=== PATIENT | female | born 1950 | race African-American/Black ===

== ENCOUNTER 2019-01-14 13:14 | Observation (INO) | payer OTHER ==
[~2019-01-14] VITALS: Ht 165.1 cm; Wt 77.1 kg
--- OUTSIDE RECORDS SUMMARY | 2019-01-14 13:17 | XMS REPORT | CCD ---
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 Role Phone Larry Recinos CP Allergies, Adverse Reactions, Alerts Substance Reaction Status NKDA Active Problem List Condition Effective Dates Status Hypertension Active Medications Medication Instructions Start Date End Date Status Flexeril 10 mg, 1 tab, Route: PO, Drug form: 06/01/2012 06/02/2012 Discontinued TAB, TID, PRN Pain, Priority: STAT, Start date: 06/01/12 15:16:00, Duration: 30 day, Stop date: 07/01/12 15:15:00 aspirin 325 mg, 1 tab, Route: PO, Drug 06/01/2012 06/01/2012 Completed form: TAB, ONCE, Priority: STAT, Start date: 06/01/12 15:24:00, Stop date: 06/01/12 15:24:00 ondansetron 4 mg, 2 mL, Route: IVP, Drug form: 06/01/2012 06/02/2012 Discontinued INJ, Q8H, PRN Nausea & Vomiting, Start date: 06/01/12 17:29:00, Duration: 30 day, Stop date: 07/01/12 17:28:00 carvedilol 3.125 mg, 1 tab, Route: PO, Drug 06/01/2012 06/02/2012 Discontinued form: TAB, Q12H, Start date: 06/01/12 21:00:00, Duration: 30 day, Stop date: 07/01/12 9:00:00 morphine Sulfate 2 mg, 1 mL, Route: IVP, Drug form: 06/01/2012 06/02/2012 Discontinued INJ, Q15Min, PRN Chest Pain, Start date: 06/01/12 17:29:00, Duration: 2 doses or times, Stop date: Limited # of times nitroglycerin SL Tab 0.4 mg, 1 tab, Route: SL, Drug 06/01/2012 06/02/2012 Discontinued form: TAB, Q5Min, PRN Chest Pain, Start date: 06/01/12 17:29:00, Duration: 3 doses or times, Stop date: Limited # of times Saline Flush 0.9% 5 ml, Route: IVP, Drug Form: INJ, 06/01/2012 06/02/2012 Discontinued Q12H, Start date: 06/01/12 21:00:00, Duration: 30 day, Stop date: 07/01/12 9:00:00 Saline Flush 0.9% 5 ml, Route: IVP, Drug Form: INJ, 06/01/2012 06/01/2012 Discontinued PRN, PRN Line Flush, Start date: 06/01/12 17:29:00, Duration: 30 day, Stop date: 07/01/12 17:28:00 Zithromax Z-Jonathan 250 See Instructions, 1 pkg, 06/02/2012 Ordered mg oral tablet Substitution Allowed, PO PO carvedilol 3.125 mg 3.125 mg, 1 tab, PO, Q12H, 60 tab, 06/02/2012 Ordered oral tablet 1, 1, Substitution Allowed, TAB aspirin 81 mg, 1 tab, Route: PO, Drug form: 06/01/2012 06/02/2012 Discontinued ECTAB, Daily, Start date: 06/01/12 22:30:00, Duration: 30 day, Stop date: 07/01/12 9:00:00 Flexeril 10 mg, 1 tab, Route: PO, Drug form: 06/01/2012 06/01/2012 Completed TAB, ONCE, Priority: STAT, Start date: 06/01/12 13:45:00, Stop date: 06/01/12 13:45:00 metoprolol tartrate 50 mg, Route: PO, Drug form: TAB, 06/01/2012 06/01/2012 Completed ONCE, Priority: STAT, Start date: 06/01/12 14:46:00, Stop date: 06/01/12 14:46:00 Calcium, Magnesium 2 tab, PO, TID, 100 tab, 06/01/2012 06/02/2012 Discontinued and Phosphorus oral Substitution Allowed, Soft Stop, tablet TAB morphine Sulfate 4 mg, Route: IVP, ONCE, Start date: 06/01/2012 06/01/2012 Completed 06/01/12 14:46:00, Stop date: 06/01/12 14:46:00 morphine Sulfate 2 mg, 1 mL, Route: IVP, Drug form: 06/01/2012 06/01/2012 Completed INJ, ONCE, Priority: STAT, Start date: 06/01/12 11:14:00, Stop date: 06/01/12 11:14:00 nitroglycerin 0.4 mg, 1 tab, Route: SL, Drug 06/01/2012 06/01/2012 Discontinued form: TAB, Q5Min, PRN Chest Pain, (Hold if SBP <=90 mmHg or if <=100mmHg with symptomatic dizziness), Start date: 06/01/12 11:14:00, Duration: 3 doses or times, Stop date: Limited # of times Saline Flush 0.9% 5 ml, Route: IVP, Drug Form: INJ, 06/01/2012 06/02/2012 Discontinued PRN, PRN Line Flush, Start date: 06/01/12 11:14:00, Duration: 30 day, Stop date: 07/01/12 11:13:00 Tylenol 650 mg, 2 tab, Route: PO, Drug 06/02/2012 06/02/2012 Discontinued form: TAB, Q4H, PRN Pain Score 1-5, Start date: 06/02/12 9:04:00, Duration: 30 day, Stop date: 07/02/12 9:03:00 Centrum Silver PO, Daily, Substitution Allowed, 06/01/2012 Ordered Women's Soft Stop aspirin 81 mg 81 mg, 1 tab, PO, Daily, tab, 06/01/2012 Ordered tablet, chewable Substitution Allowed, CHEWTAB Vital Signs Most recent to oldest [Reference Range]: 1 2 3 Height 167.64 cm (06/01/2012 10:47:00) Temperature Oral [96.4-99.1 DegF] 98.2 DegF (06/02/2012 12:42:00) 97.9 DegF (06/02/2012 08:02:00) 97.9 DegF (06/02/2012 04:00:00) Systolic Blood Pressure [90-140 mmHg] 121 mmHg (06/02/2012 12:42:00) 140 mmHg (06/02/2012 08:02:00) 96 mmHg (06/02/2012 04:00:00) Diastolic Blood Pressure [60-90 mmHg] 69 mmHg (06/02/2012 12:42:00) 87 mmHg (06/02/2012 08:02:00) 57 mmHg *LOW* (06/02/2012 04:00:00) Respiratory Rate [14-20 BRMIN] 20 BRMIN (06/02/2012 12:42:00) 20 BRMIN (06/02/2012 08:02:00) 18 BRMIN (06/02/2012 04:00:00) Peripheral Pulse Rate [60-100 bpm] 85 bpm (06/02/2012 12:42:00) 88 bpm (06/02/2012 08:02:00) 80 bpm (06/02/2012 04:00:00) Weight 100.000 kg (06/01/2012 10:47:00) Results CHEMISTRY Most recent to oldest [Reference Range]: 1 2 3 Sodium Lvl [135-145 mEq/L] 139 mEq/L (06/01/2012:04:00) Potassium Lvl [3.5-5.1 mEq/L] 3.9 mEq/L (06/01/2012 11:04:00) Chloride Lvl [95-109 mEq/L] 104 mEq/L (06/01/2012:04:00) CO2 [24-32 mEq/L] 25 mEq/L (06/01/2012 11:04:00) AGAP [10.0-20.0 mEq/L] 13.9 mEq/L (06/01/2012:04:00) Creatinine Lvl [0.5-1.4 mg/dL] 0.9 mg/dL (06/01/2012:04:00) BUN [7-22 mg/dL] 17 mg/dL (06/01/2012:04:00) B/C Ratio [6-25] 19 (06/01/2012:04:00) Glucose Lvl [70-99 mg/dL] 101 mg/dL 1 *HI* (06/01/2012 11:04:00) Total Protein [6.4-8.4 g/dL] 8.9 g/dL *HI* (06/01/2012 11:04:00) Albumin Lvl [3.5-5.0 g/dL] 3.8 g/dL (06/01/2012:04:00) Globulin [2.0-4.0 g/dL] 5.1 g/dL *HI* (06/01/2012:04:00) A/G Ratio [0.7-1.6] 0.7 (06/01/2012:04:00) Calcium Lvl [8.5-10.5 mg/dL] 9.4 mg/dL (06/01/2012:04:00) ALT [0-65 U/L] 37 U/L (06/01/2012:04:00) AST [0-37 U/L] 21 U/L (06/01/2012:04:00) Alk Phos [39-136 U/L] 90 U/L (06/01/2012:04:00) Bili Total [0.2-1.3 mg/dL] 0.5 mg/dL (06/01/2012:04:00) Total CK [12-191 U/L] 358 U/L *HI* (06/01/2012 20:45:00) 388 U/L *HI* (06/01/2012 15:30:00) 482 U/L *HI* (06/01/2012:04:00) CK MB [0.5-3.6 ng/mL] 2.0 ng/mL (06/01/2012 20:45:00) 2.2 ng/mL (06/01/2012:30:00) 2.9 ng/mL (06/01/2012:04:00) CK MB Index [0.0-2.5] 0.6 (06/01/2012 20:45:00) 0.6 (06/01/2012:30:00) 0.6 (06/01/2012:04:00) Troponin-I [0.00-0.40 ng/mL] 0.03 ng/mL (06/01/2012 20:45:00) 0.03 ng/mL (06/01/2012 15:30:00) 0.03 ng/mL (06/01/2012:04:00) CHD Risk [3.90-5.80] 4.39 (06/01/2012 15:30:00) Chol [120-200 mg/dL] 215 mg/dL *HI* (06/01/2012:30:00) Trig [0-200 mg/dL] 105 mg/dL (06/01/2012:30:00) HDL [>=35 mg/dL] 49 mg/dL (06/01/2012:30:00) LDL [0-129 mg/dL] 145 mg/dL *HI* (06/01/2012:30:00) 1Interpretive Data: Adult reference range values reflect the clinical guidelines of the [place] [employer]. HEMATOLOGY Most recent to oldest [Reference Range]: 1 2 3 WBC [3.7-10.4 K/CMM] 5.8 K/CMM (06/01/2012:04:00) RBC [4.20-5.40 M/CMM] 4.75 M/CMM (06/01/2012:04:00) Hgb [12.0-16.0 g/dL] 13.2 g/dL (06/01/2012:04:00) Hct [36.0-48.0 %] 39.2 % (06/01/2012::00) MCV [81.0-99.0 fL] 82.5 fL (06/01/2012:04:00) MCH [27.0-31.0 pg] 27.9 pg (06/01/2012:04:00) MCHC [32.0-36.0 g/dL] 33.8 g/dL (06/01/2012:04:00) RDW [11.5-14.5 %] 14.3 % (06/01/2012:04:00) Platelet [133-450 K/CMM] 303 K/CMM (06/01/2012:04:00) MPV [7.4-10.4 fL] 7.5 fL (06/01/2012:04:00) Segs [45.0-75.0 %] 64.4 % (06/01/2012:04:00) Lymphocytes [20.0-40.0 %] 29.3 % (06/01/2012 11:04:00) Monocytes [2.0-12.0 %] 4.4 % (06/01/2012:04:00) Eosinophils [0.0-4.0 %] 1.6 % (06/01/2012 11:04:00) Basophils [0.0-1.0 %] 0.3 % (06/01/2012:04:00) Segs-Bands # [1.5-8.1 K/CMM] 3.7 K/CMM (06/01/2012 11:04:00) Lymphocytes # [1.0-5.5 K/CMM] 1.7 K/CMM (06/01/2012:04:00) Monocytes # [0.0-0.8 K/CMM] 0.3 K/CMM (06/01/2012 11:04:00) Eosinophils # [0.0-0.5 K/CMM] 0.1 K/CMM (06/01/2012 11:04:00) Basophils # [0.0-0.2 K/CMM] 0.0 K/CMM (06/01/2012 11:04:00) PT [12.0-14.7 seconds] 12.3 seconds (06/01/2012:04:00) INR [0.85-1.17] 0.89 2 (06/01/2012:04:00) PTT [22.9-35.8 seconds] 27.1 seconds 3 (06/01/2012 11:04:00) 2Interpretive Data: RECOMMENDED RANGES FOR PROTIME INR: 2.0-3.0 for most medical and surgical thromboembolic states. 2.5-3.5 for artificial heart valves and recurrent embolism. INR SHOULD BE USED ONLY FOR PATIENTS ON STABLE ANTICOAGULANT THERAPY. 3Interpretive Data: Heparin Therapeutic Range: 57 - 92 Seconds
--- OUTSIDE RECORDS SUMMARY | 2019-01-14 13:17 | XMS REPORT | CCD ---
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 Role Phone PiloJonathan wilhelm Alycia CP Allergies, Adverse Reactions, Alerts Substance Reaction Status NKDA Active Problem List Condition Effective Dates Status Hypertension Resolved Hypertension Active Medications Medication Instructions Start Date End Date Status Cross 5/325 oral 2 tab, Route: PO, Dosing Weight 10/14/2013 10/14/2013 Completed tablet 100, kg, ONCE, Start date: 10/14/13 23:17:00, Stop date: 10/14/13 23:17:00 ketorolac 30 mg, Route: IVP, Drug form: INJ, 10/14/2013 10/14/2013 Completed ONCE, Dosing Weight 100, kg, Priority: STAT, Start date: 10/14/13 23:17:00, Stop date: 10/14/13 23:17:00 Cross 5/325 oral 1-2 tablets, PO, Q4-6H, as needed 10/14/2013 10/19/2013 Ordered tablet for pain, # 24 tab, 0 Refill(s) Norvasc 5 mg oral 5 mg=1 tab, PO, Daily, # 30 tab, 0 10/14/2013 Ordered tablet Refill(s) Saline Flush 0.9% 5 mL, Route: IVP, Drug Form: INJ, 10/14/2013 10/15/2013 Discontinued Dosing Weight 100, kg, Q8H, PRN Line Flush, Start date: 10/14/13 17:44:00, Duration: 30 day, Stop date: 11/13/13 17:43:00, Administer at least once every 8 hours Administer at least once every 8 hours(Same as: BD Posiflush) morphine Sulfate 4 mg, 1 mL, Route: IVP, Drug form: 10/14/2013 10/14/2013 Completed INJ, ONCE, Dosing Weight 100, kg, Priority: STAT, Start date: 10/14/13 17:44:00, Stop date: 10/14/13 17:44:00(Same as:MORPhine Sulfate) Vital Signs Most recent to oldest [Reference Range]: 1 2 Temperature Oral [96.4-99.1 DegF] 99.3 DegF *HI* (10/14/2013 23:01:00) 99.3 DegF *HI* (10/14/2013 16:36:00) Systolic Blood Pressure [90-140 mmHg] 155 mmHg *HI* (10/14/2013 19:44:00) 201 mmHg *HI* (10/14/2013 16:36:00) Diastolic Blood Pressure [60-90 mmHg] 72 mmHg (10/14/2013 19:44:00) 97 mmHg *HI* (10/14/2013 16:36:00) Respiratory Rate [14-20 BRMIN] 18 BRMIN (10/14/2013 19:44:00) 20 BRMIN (10/14/2013 16:36:00) Peripheral Pulse Rate [60-100 bpm] 90 bpm (10/14/2013 19:44:00) 115 bpm *HI* (10/14/2013 16:36:00) Results CHEMISTRY Most recent to oldest [Reference Range]: 1 Sodium Lvl [135-145 mEq/L] 139 mEq/L (10/14/2013 17:44:00) Potassium Lvl [3.5-5.1 mEq/L] 3.8 mEq/L (10/14/2013 17:44:00) Chloride Lvl [95-109 mEq/L] 106 mEq/L (10/14/2013 17:44:00) CO2 [24-32 mEq/L] 26 mEq/L (10/14/2013 17:44:00) AGAP [10.0-20.0 mEq/L] 10.8 mEq/L (10/14/2013 17:44:00) Creatinine Lvl [0.5-1.4 mg/dL] 0.7 mg/dL (10/14/2013 17:44:00) eGFR 107 mL/min/1.73m2 1 *NA* (10/14/2013 17:44:00) BUN [7-22 mg/dL] 12 mg/dL (10/14/2013 17:44:00) B/C Ratio [6-25] 17 (10/14/2013 17:44:00) Glucose Lvl [70-99 mg/dL] 98 mg/dL 2 (10/14/2013:44:00) Total Protein [6.4-8.4 g/dL] 8.4 g/dL (10/14/2013:44:00) Albumin Lvl [3.5-5.0 g/dL] 3.9 g/dL (10/14/2013:44:00) Globulin [2.0-4.0 g/dL] 4.5 g/dL *HI* (10/14/2013:44:00) A/G Ratio [0.7-1.6] 0.9 (10/14/2013:44:00) Calcium Lvl [8.5-10.5 mg/dL] 9.0 mg/dL (10/14/2013:44:00) ALT [0-65 unit/L] 32 unit/L (10/14/2013:44:00) AST [0-37 unit/L] 21 unit/L (10/14/2013:44:00) Alk Phos [39-136 unit/L] 104 unit/L (10/14/2013:44:00) Bili Total [0.2-1.3 mg/dL] 0.5 mg/dL (10/14/2013:44:00) Total CK [12-191 unit/L] 525 unit/L *HI* (10/14/2013:44:00) CK MB [0.5-3.6 ng/mL] 4.2 ng/mL *HI* (10/14/2013:44:00) CK MB Index [0.0-2.5] 0.8 (10/14/2013:44:00) Troponin-I [0.00-0.40 ng/mL] 0.04 ng/mL (10/14/2013:44:00) 1Result Comment: The eGFR is calculated using the CKD-EPI formula. In most young, healthy individuals the eGFR will be >90 mL/min/1.73m2. The eGFR declines with age. An eGFR of 60-89 may be normal in some populations, particularly the elderly, for whom the CKD-EPI formula has not been extensively validated. Use of the eGFR is not recommended in the following populations: Individuals with unstable creatinine concentrations, including patients and those with serious co-morbid conditions. Patients with extremes in muscle mass or diet. The data above are obtained from the National Kidney Disease Education Program ( NKDEP) which additionally recommends that when the eGFR is used in patients with extremes of body mass index for purposes of drug dosing, the eGFR should be mul tiplied by the estimated BMI. 2Interpretive Data: Adult reference range values reflect the clinical guidelines of the [place] [employer]. HEMATOLOGY Most recent to oldest [Reference Range]: 1 WBC [3.7-10.4 K/CMM] 7.4 K/CMM (10/14/2013:44:) RBC [4.20-5.40 M/CMM] 4.86 M/CMM (10/14/2013:44:00) Hgb [12.0-16.0 g/dL] 13.3 g/dL (10/14/2013:44:00) Hct [36.0-48.0 %] 40.7 % (10/14/2013:44:00) MCV [81.0-99.0 fL] 83.8 fL (10/14/2013:44:) MCH [27.0-31.0 pg] 27.3 pg (10/14/2013:44:00) MCHC [32.0-36.0 g/dL] 32.6 g/dL (10/14/2013:44:) RDW [11.5-14.5 %] 14.2 % (10/14/2013:44:00) Platelet [133-450 K/CMM] 298 K/CMM (10/14/2013:44:00) MPV [7.4-10.4 fL] 7.8 fL (10/14/2013:44:00) Segs [45.0-75.0 %] 69.1 % (10/14/2013:44:00) Lymphocytes [20.0-40.0 %] 23.3 % (10/14/2013:44:) Monocytes [2.0-12.0 %] 6.2 % (10/14/2013 17:44:00) Eosinophils [0.0-4.0 %] 0.9 % (10/14/2013 17:44:00) Basophils [0.0-1.0 %] 0.5 % (10/14/2013 17:44:00) Segs-Bands # [1.5-8.1 K/CMM] 5.1 K/CMM (10/14/2013 17:44:00) Lymphocytes # [1.0-5.5 K/CMM] 1.7 K/CMM (10/14/2013 17:44:00) Monocytes # [0.0-0.8 K/CMM] 0.5 K/CMM (10/14/2013 17:44:00) Eosinophils # [0.0-0.5 K/CMM] 0.1 K/CMM (10/14/2013 17:44:00) Basophils # [0.0-0.2 K/CMM] 0.0 K/CMM (10/14/2013 17:44:00) D-Dimer 0.55 ug/mL FEU 3 *NA* (10/14/2013 17:44:00) 3Interpretive Data: In DIC, quantitative D-Dimer is generally greater than 0.66 ug/mL FEU. Values of quantitative D-Dimer less than 0.40 ug/mL FEU have been reported to be associated with a low probability of deep vein thrombosis/pulmonary embolism. This test alone should not be used to rule out DVT/PE.
--- OUTSIDE RECORDS SUMMARY | 2019-01-14 13:17 | XMS REPORT | Clinical Summary ---
Author Author [facility] Organization [facility] Address Unknown Phone Unavailable Care Team Providers Care Weight Loss Counselor Name Role Phone Alexis Pinon MD PCP Allergies Comments Active Allergy Reactions Severity Noted Date Swelling of the lips Jh Inhibitors Swelling 07/11/2017 Medications End Date Status Medication Sig Dispensed Refills Start Date Active pantoprazole (PROTONIX) Take 40 mg by 0 40 MG EC tablet mouth daily. 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 Active acetaminophen-codeine Take 1 tablet 0 (TYLENOL WITH CODEINE #3) by mouth 300-30 mg per tablet every 4 (four) hours as needed for moderate pain. Active benzonatate (TESSALON) Take 100 mg 0 100 MG capsule by mouth 3 (three) times a day as needed for cough. Active aspirin (ECOTRIN) 81 MG Take 81 mg by 0 enteric coated tablet mouth every other day. 06/18/2018 Discontinued aspirin 81 mg chewable Chew 1 tablet 30 tablet 11 tablet (81 mg total) 7 daily. 02/13/2018 Discontinued ondansetron (ZOFRAN) 4 MG Take 1 tablet 20 tablet 1 tablet (4 mg total) 7 by mouth every 8 (eight) hours as needed for nausea or vomiting. 02/13/2018 Discontinued PROCTOSOL HC 2.5 % rectal USE 0 cream DIRECTED 7 RECTALLY TWICE A DAY FOR 30 DAYS 02/13/2018 Discontinued atorvastatin (LIPITOR) 20 TAKE 1 TABLET 30 tablet 5 MG tablet (20 MG TOTAL) 8 BY MOUTH DAILY FOR 180 DAYS. DEFAULT OP INS 06/15/2018 Discontinued carvedilol (COREG) 25 MG TAKE 1 TABLET 60 tablet 0 tablet BY MOUTH 8 TWICE A DAY FOR 30 DAYS 02/13/2018 Discontinued pantoprazole (PROTONIX) Take 1 tablet 90 tablet 1 40 MG EC tablet (40 mg total) 8 by mouth daily. Take with supper 08/30/2018 Discontinued magnesium oxide (MAG-OX) Take 1 tablet 60 tablet 11 400 mg tablet (400 mg 8 total) by mouth 2 (two) times a day. 02/13/2018 Discontinued atorvastatin (LIPITOR) 20 Take 1 tablet 30 tablet 5 MG tablet (20 mg total) 8 by mouth daily for 180 days. Default OP ins 02/13/2018 Discontinued miscellaneous medical 1 unit 1 each 1 supply (BLOOD PRESSURE marking on 8 CUFF) misc U-100 syringe daily. 05/17/2018 Discontinued atorvastatin (LIPITOR) 20 Take 1 tablet 30 tablet 5 MG tablet (20 mg total) 8 by mouth daily for 180 days. Default OP ins 06/15/2018 Discontinued miscellaneous medical 1 unit 1 each 1 supply (BLOOD PRESSURE marking on 8 CUFF) misc U-100 syringe daily. 03/15/2018 ferrous sulfate 325 (65 Take 1 tablet 30 tablet 2 FE) MG EC tablet (325 mg 8 total) by mouth daily for 30 days. 06/15/2018 Discontinued ferrous sulfate 325 (65 TAKE 1 TABLET 2 FE) MG tablet (325 MG 8 TOTAL) BY MOUTH DAILY FOR 30 DAYS. 08/30/2018 Discontinued atorvastatin (LIPITOR) 20 Take 1 tablet 90 tablet 1 MG tablet (20 mg total) 8 by mouth daily for 180 days. Default OP ins 08/30/2018 Discontinued ferrous sulfate 325 (65 Take 325 mg 0 FE) MG tablet by mouth daily with breakfast. 06/21/2018 Discontinued enoxaparin (LOVENOX) 100 Inject 100 mg 0 mg/mL syringe under the skin every 12 (twelve) hours. 06/21/2018 Discontinued HYDROcodone-acetaminophen Take 1 tablet 0 (NORCO) 10-325 mg per by mouth tablet every 6 (six) hours as needed for moderate pain. 06/27/2018 Discontinued enoxaparin (LOVENOX) 40 Inject 0.4 mL 12 mL 0 mg/0.4 mL syringe (40 mg total) 8 under the skin daily for 30 days. 07/22/2018 psyllium husk (METAMUCIL) Take 1 packet 30 packet 0 6 gram packet by mouth 8 daily for 30 days. 07/27/2018 enoxaparin (LOVENOX) 40 Inject 0.4 mL 12 mL 0 mg/0.4 mL syringe (40 mg total) 8 under the skin daily for 30 days. 08/02/2018 HYDROcodone-acetaminophen Take 1 tablet 100 tablet 0 (NORCO) 10-325 mg per by mouth 8 tablet every 4 (four) hours as needed for moderate pain for up to 100 doses. Max Daily Amount: 6 tablets 08/30/2018 Discontinued acetaminophen-codeine Take 1 tablet 180 tablet 0 (TYLENOL WITH CODEINE #3) by mouth 8 300-30 mg per every 4 tabletIndications: (four) hours Mucinous adenocarcinoma as needed for of appendix (HCC), Cough, moderate pain Metastatic cancer (HCC) for up to 30 days. 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 08/30/2018 Discontinued benzonatate (TESSALON) Take 1 90 capsule 3 100 MG capsule (100 8 capsuleIndications: mg total) by Mucinous adenocarcinoma mouth 3 of appendix (HCC), Cough, (three) times Metastatic cancer (HCC) a day as needed for cough for up to 30 days. 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 Cancer Staging: Pathologic stage from 11/08/2017: Stage SARAH (ypTX, pN0, cM1b, G1) - Signed by Lyndsey Chatterjee MD on 11/28/2017 Protein-calorie malnutrition, moderate 11/09/2017 Colovaginal fistula 11/06/2017 Metastatic cancer 11/03/2017 Omental metastasis 09/11/2017 Cancer Staging: Pathologic stage from 11/08/2017: Stage IVC (ypT4a, pN1c, pM1c) - Signed by Lyndsey Chatterjee MD on 11/20/2017 Obesity 09/11/2017 Hypoalbuminemia 09/11/2017 Carcinomatosis 09/06/2017 Hyperlipidemia 06/12/2017 Chronic deep vein thrombosis (DVT) of lower extremity 06/05/2017 Cough 05/16/2017 Essential hypertension 04/10/2017 Resolved Problems Problem Noted Date Resolved Date Vaginal bleeding 06/15/2018 07/03/2018 Normocytic anemia 02/13/2018 04/06/2018 Colovesical fistula 11/06/2017 02/13/2018 Reactive depression 10/09/2017 02/13/2018 Slow transit constipation 10/09/2017 02/13/2018 Cancer of appendix 09/18/2017 04/06/2018 Hypokalemia 09/11/2017 02/13/2018 Cellulitis 09/03/2017 02/13/2018 Vaginal bleeding 07/21/2017 02/13/2018 Acute cystitis with hematuria 07/21/2017 02/13/2018 Claudication 07/11/2017 02/13/2018 UTI (urinary tract infection) 05/16/2017 02/13/2018 Bartholin cyst 04/28/2017 02/13/2018 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 02/13/2018 Encounters Care Team Description Date Type Specialty Harish Villagomez MD 09/20/2018 Telephone Oncology Enrique Casillas DO Patel, Sachin P., MD Samani, Kaveh, MD Cancer of appendix (HCC) (Primary Dx); Metastatic cancer (HCC) 08/30/2018 Hospital Neurology - Encounter 09/03/2018 Mary Dejessu RN 08/29/2018 Documentation Oncology Abel Hdez LMSW 08/13/2018 Social Work Oncology Harish Villagomez MD 08/10/2018 Telephone Oncology Abel Hdez, [facility] [place] 08/10/2018 Social Work Oncology Abel Hdez, [facility] [place] 08/09/2018 Social Work Oncology Abel Hdez, [facility] [place] 08/06/2018 Social Work Oncology Abel Hdez, [facility] [place] 08/02/2018 Social Work Oncology Harish Villagomez MD 07/31/2018 Telephone Oncology Abel Hdez, [facility] [place] 07/31/2018 Social Work Oncology Harish Villagomez MD Left foot pain 07/30/2018 Hospital Radiology Encounter Harish Villagomez MD Cancer of appendix (HCC) 07/30/2018 Hospital Radiology Encounter Harish Villagomez MD Cancer of appendix (HCC) 07/30/2018 Lab Lab Harish Villagomez MD Chronic deep vein thrombosis (DVT) of left lower extremity, unspecified vein (HCC) (Primary Dx); Colovaginal fistula; Mucinous adenocarcinoma of appendix (HCC); Cough; Arch pain of left foot 07/30/2018 Office Visit Oncology Harish Villagomez MD 07/30/2018 Orders Only Oncology Pola Kelly RN Mucinous adenocarcinoma of appendix (HCC) (Primary Dx); Cough; Metastatic cancer (HCC) 07/30/2018 Orders Only Oncology Ariella Flores MA Cancer of appendix (HCC) (Primary Dx); Left foot pain 07/30/2018 Orders Only Oncology Harish Villagomez MD 07/16/2018 Telephone Oncology Maureen Mcclelland MA 07/05/2018 Telephone Internal Medicine Harish Villagomez MD 07/04/2018 Telephone Oncology Harish Villagomez MD Cancer of appendix; Anemia, unspecified type 07/03/2018 Lab Lab Harish Villagomez MD Chronic deep vein thrombosis (DVT) of left lower extremity, unspecified vein (Primary Dx); Colovaginal fistula; Mucinous adenocarcinoma of appendix; Carcinomatosis; Omental metastasis 07/03/2018 Office Visit Oncology Harish Villagomez MD Cancer of appendix 07/02/2018 Hospital Radiology Encounter Bayron Lay MD 07/02/2018 Hospital Radiation Oncology Encounter Cassie Agosto MA 06/27/2018 Orders Only Internal Medicine Bayron Lay MD 06/18/2018 Hospital Radiation Oncology Encounter Sam Malin MD Boyareddigari, Prasanth R., MD Ahmed, Rezwan, MD Fan, Jinping, MD Vaginal bleeding (Primary Dx); Chronic deep vein thrombosis (DVT) of left lower extremity, unspecified vein; 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 [facility] - [facility] 06/21/2018 Pola Kelly RN 05/30/2018 Telephone Oncology Pola Kelly RN 05/24/2018 Refill Oncology Lucía Hardy MD 05/17/2018 Refill Internal Medicine Darling Savage MD 05/13/2018 Refill Internal Medicine Darling Savage MD Adenocarcinoma carcinomatosis (Primary Dx) 04/13/2018 Orders Only Internal Medicine Harish Villagomez MD Cancer of appendix 04/06/2018 Lab Lab Harish Villagomez MD Cancer of appendix (Primary Dx); Mucinous adenocarcinoma of appendix; Metastatic cancer; Disorder of stoma; Reflux esophagitis; Microcytic anemia 04/06/2018 Office Visit Oncology Ariella Flores MA Cancer of appendix (Primary Dx); Anemia, unspecified type 04/06/2018 Orders Only Oncology Darling Savage MD Disorder of stoma (Primary Dx) 03/15/2018 Orders Only Internal Medicine Darling Savage MD Disorder of stoma (Primary Dx) 03/15/2018 Orders Only Internal Medicine Darling Savage MD Disorder of stoma (Primary Dx); Vertigo 03/13/2018 Office Visit Internal Medicine Harish Villagomez MD Cancer of appendix (Primary Dx); Mucinous adenocarcinoma of appendix; Colovaginal fistula; Carcinomatosis; Omental metastasis 02/27/2018 Office Visit Oncology Ariella Flores MA Cancer of appendix (Primary Dx) 02/27/2018 Orders Only Oncology Ariella Flores MA 02/16/2018 Telephone Oncology Darling Savage MD Hyperlipidemia, unspecified hyperlipidemia type (Primary Dx); Omental metastasis; Mucinous adenocarcinoma of appendix; Carcinomatosis; Metastatic cancer; Normocytic anemia 02/13/2018 Office Visit Internal Medicine Lyndsey Chatterjee MD 02/13/2018 Documentation General Surgery Fran Eid MD Colorectal Tumor Board Review 02/08/2018 Documentation General Surgery Cassie Agosto MA 02/07/2018 Telephone Internal Medicine Lyndsey Chatterjee MD Mucinous adenocarcinoma of appendix (Primary Dx) 02/06/2018 Office Visit General Surgery Lyndsey Chatterjee MD Mucinous adenocarcinoma of appendix 02/02/2018 Lab Lab Lyndsey Chatterjee MD Mucinous adenocarcinoma of appendix 02/02/2018 Hospital Radiology Encounter Darling Savage MD 02/01/2018 Telephone Internal Medicine Ciara Solis RN 01/31/2018 Telephone General Surgery Ciara Solis RN 01/30/2018 Telephone General Surgery Ciara Solis RN 01/29/2018 Telephone General Surgery Ciara Solis RN 01/25/2018 Telephone General Surgery Ciara Solis RN Mucinous adenocarcinoma of appendix (Primary Dx) 01/25/2018 Orders Only General Surgery Ciara Solis RN Mucinous adenocarcinoma of appendix (Primary Dx) 01/25/2018 Orders Only General Surgery after 01/13/2018 Family History Medical History Relation Name Comments Deep vein thrombosis Brother Cervical cancer Daughter Hypertension Father Hypertension Mother Breast cancer Sister Relation Name Status Comments Brother Daughter Father Mother Sister Social History Date Tobacco Use Types Packs/Day Years Used Never Smoker Smokeless Tobacco: Never Used Alcohol Use Drinks/Week oz/Week Comments No Sex Assigned at Date Recorded Not on file Industry Job Start Date Occupation Not on file Not on file Not on file Travel End Travel History Travel Start No recent travel history available. Last Filed Vital Signs Time Taken Vital Sign Reading 09/03/2018 12:37 PM BUSINESS CONTINUITY DIRECTOR Blood Pressure 136/84 09/03/2018 12:37 PM BUSINESS CONTINUITY DIRECTOR Pulse 95 09/03/2018 12:27 PM BUSINESS CONTINUITY DIRECTOR Temperature 36.8 C (98.3 F) 09/03/2018 12:27 PM BUSINESS CONTINUITY DIRECTOR Respiratory Rate 16 09/03/2018 12:27 PM BUSINESS CONTINUITY DIRECTOR Oxygen Saturation 98% - Inhaled Oxygen - Concentration 07/30/2018 1:21 PM CDT Weight 84.4 kg (186 lb 1.6 oz) 08/30/2018 10:00 AM BUSINESS CONTINUITY DIRECTOR Height 165.1 cm (5' 5") 07/30/2018 1:21 PM CDT Body Mass Index 30.97 Plan of Treatment Health Maintenance Due Date Last Done Comments BREAST CANCER SCREENING 2000 COLON CANCER SCREENING 2000 SHINGLES VACCINES (#1) 2000 65+ PNEUMOCOCCAL VACCINE 2015 (1 of 2 - PCV13) PNEUMOCOCCAL 2015 POLYSACCHARIDE VACCINE AGE 65 AND OVER INFLUENZA VACCINE 05/23/2018 Implants Device Identifier Shelf Expiration Date Model / Serial / Lot Implanted Type Area Manufactur er [id number] / / Cook Celect Gulliver Navalign Vascular N/A: N/A itzat Uniset Vena Cava Filter - Filter PERIPHERAL [id number] INTERVENTI Implanted: 06/18/2018 (Quantity not ON on file) Procedures Comments Procedure Name Priority Date/Time Associated Diagnosis ESTIMATED GFR Routine 09/01/2018 5:08 AM BUSINESS CONTINUITY DIRECTOR BASIC METABOLIC PANEL Routine 09/01/2018 5:08 AM BUSINESS CONTINUITY DIRECTOR HC COMPLETE BLD COUNT Routine 09/01/2018 W/AUTO DIFF 5:08 AM BUSINESS CONTINUITY DIRECTOR US ABDOMINAL PARACENTESIS Routine 08/31/2018 IMAGING 2:00 PM BUSINESS CONTINUITY DIRECTOR PROTHROMBIN TIME WITH INR Routine 08/31/2018 4:53 AM BUSINESS CONTINUITY DIRECTOR HC COMPLETE BLD COUNT Routine 08/31/2018 W/AUTO DIFF 4:53 AM BUSINESS CONTINUITY DIRECTOR CARCINOEMBRYONIC ANTIGEN Routine 08/31/2018 (CEA) 4:00 AM BUSINESS CONTINUITY DIRECTOR ESTIMATED GFR Routine 08/31/2018 4:00 AM BUSINESS CONTINUITY DIRECTOR BASIC METABOLIC PANEL Routine 08/31/2018 4:00 AM BUSINESS CONTINUITY DIRECTOR URINALYSIS SCREEN AND Routine 08/30/2018 MICROSCOPY, WITH REFLEX 4:57 PM BUSINESS CONTINUITY DIRECTOR TO CULTURE CT ABDOMEN PELVIS W STAT 08/30/2018 CONTRAST 1:21 PM BUSINESS CONTINUITY DIRECTOR ESTIMATED GFR STAT 08/30/2018 10:50 AM BUSINESS CONTINUITY DIRECTOR URINALYSIS SCREEN AND STAT 08/30/2018 MICROSCOPY, WITH REFLEX 10:50 AM BUSINESS CONTINUITY DIRECTOR TO CULTURE LIPASE LEVEL STAT 08/30/2018 10:50 AM BUSINESS CONTINUITY DIRECTOR COMPREHENSIVE METABOLIC STAT 08/30/2018 PANEL 10:50 AM BUSINESS CONTINUITY DIRECTOR HC COMPLETE BLD COUNT STAT 08/30/2018 W/AUTO DIFF 10:50 AM BUSINESS CONTINUITY DIRECTOR GRAM STAIN STAT 08/30/2018 10:50 AM BUSINESS CONTINUITY DIRECTOR URINE CULTURE STAT 08/30/2018 10:50 AM BUSINESS CONTINUITY DIRECTOR ECG 12-LEAD STAT 08/30/2018 10:13 AM BUSINESS CONTINUITY DIRECTOR XR CHEST 2 VW Routine 07/30/2018 Cancer of appendix (HCC) 4:00 PM CDT XR FOOT 3+ VW LEFT Routine 07/30/2018 Left foot pain 3:59 PM CDT CARCINOEMBRYONIC ANTIGEN Routine 07/30/2018 (CEA) 2:58 PM CDT CBC WITH PLATELET AND Routine 07/30/2018 DIFFERENTIAL 2:58 PM CDT COMPREHENSIVE METABOLIC Routine 07/30/2018 PANEL 2:58 PM CDT ESTIMATED GFR STAT 07/03/2018 2:55 PM CDT MAGNESIUM LEVEL STAT 07/03/2018 Cancer of appendix 2:55 PM CDT FERRITIN LEVEL STAT 07/03/2018 Anemia, unspecified type 2:55 PM CDT CANCER ANTIGEN 19-9 STAT 07/03/2018 Cancer of appendix 2:55 PM CDT COMPREHENSIVE METABOLIC STAT 07/03/2018 Cancer of appendix PANEL 2:55 PM CDT HC COMPLETE BLD COUNT STAT 07/03/2018 Cancer of appendix W/AUTO DIFF 2:[address] ABDOMEN PELVIS W STAT 07/02/2018 Cancer of appendix CONTRAST 12:37 PM CDT ZZESTIMATED GFR Routine 06/21/2018 12:02 AM CDT BASIC METABOLIC PANEL Routine 06/21/2018 12:02 AM CDT HC COMPLETE BLD COUNT Routine 06/21/2018 W/AUTO DIFF 12:02 AM CDT SURGICAL PATHOLOGY Routine 06/20/2018 REQUEST 5:02 PM CDT ECG 12-LEAD STAT 06/20/2018 2:51 PM CDT PREPARE RBC Timed 06/20/2018 11:35 AM CDT TYPE AND SCREEN Timed 06/20/2018 11:35 AM CDT ZZESTIMATED GFR Routine 06/20/2018 4:35 AM CDT BASIC METABOLIC PANEL Routine 06/20/2018 4:35 AM CDT HC COMPLETE BLD COUNT Routine 06/20/2018 W/AUTO DIFF 4:35 AM CDT ZZESTIMATED GFR Routine 06/19/2018 4:45 AM CDT COMPREHENSIVE METABOLIC Routine 06/19/2018 PANEL 4:45 AM CDT HC COMPLETE BLD COUNT Routine 06/19/2018 W/AUTO DIFF 4:45 AM CDT D-DIMER Routine 06/19/2018 4:45 AM CDT CARCINOEMBRYONIC ANTIGEN Routine 06/19/2018 (CEA) 4:45 AM CDT IR IVC FILTER PLACEMENT Routine 06/18/2018 1:57 PM CDT PARTIAL THROMBOPLASTIN Routine 06/18/2018 TIME (PTT) 10:55 AM CDT PROTHROMBIN TIME WITH INR Routine 06/18/2018 10:55 AM CDT HC COMPLETE BLD COUNT Routine 06/18/2018 W/AUTO DIFF 10:55 AM CDT ZZESTIMATED GFR Routine 06/18/2018 12:00 AM CDT BASIC METABOLIC PANEL Routine 06/18/2018 12:00 AM CDT ZZESTIMATED GFR Routine 06/17/2018 4:00 AM CDT PARTIAL THROMBOPLASTIN Routine 06/17/2018 TIME (PTT) 4:00 AM CDT PROTHROMBIN TIME WITH INR Routine 06/17/2018 4:00 AM CDT BASIC METABOLIC PANEL Routine 06/17/2018 4:00 AM CDT HC COMPLETE BLD COUNT Routine 06/17/2018 W/AUTO DIFF 4:[address] ABDOMEN WWO CONTRAST Routine 06/16/2018 PELVIS W CONTRAST 12:35 PM CDT ZZESTIMATED GFR Routine 06/16/2018 3:19 AM CDT HAPTOGLOBIN Routine 06/16/2018 3:19 AM CDT IRON LEVEL Routine 06/16/2018 3:19 AM CDT BASIC METABOLIC PANEL Routine 06/16/2018 3:19 AM CDT PARTIAL THROMBOPLASTIN Routine 06/16/2018 TIME (PTT) 3:19 AM CDT PROTHROMBIN TIME WITH INR Routine 06/16/2018 3:19 AM CDT HC COMPLETE BLD COUNT Routine 06/16/2018 W/AUTO DIFF 3:[address] ANGIOGRAM PE CHEST STAT 06/15/2018 7:50 PM CDT ECG 12-LEAD STAT 06/15/2018 6:46 PM CDT TROPONIN STAT 06/15/2018 6:23 PM CDT HEMOGLOBIN & HEMATOCRIT STAT 06/15/2018 6:20 PM CDT FOLATE LEVEL Routine 06/15/2018 6:20 PM CDT VITAMIN B12 LEVEL Routine 06/15/2018 6:20 PM CDT LDH Routine 06/15/2018 6:20 PM CDT HAPTOGLOBIN Routine 06/15/2018 6:20 PM CDT TOTAL IRON BINDING Routine 06/15/2018 CAPACITY 6:20 PM CDT FERRITIN LEVEL Routine 06/15/2018 6:20 PM CDT IRON LEVEL Routine 06/15/2018 6:20 PM CDT TYPE AND SCREEN Routine 06/15/2018 6:20 PM CDT US DUPLEX VENOUS LOWER STAT 06/15/2018 EXTREMITY BILATERAL 5:58 PM CDT ZZESTIMATED GFR STAT 06/15/2018 12:51 PM CDT PARTIAL THROMBOPLASTIN STAT 06/15/2018 TIME (PTT) 12:51 PM CDT PROTHROMBIN TIME WITH INR STAT 06/15/2018 12:51 PM CDT COMPREHENSIVE METABOLIC STAT 06/15/2018 PANEL 12:51 PM CDT HC COMPLETE BLD COUNT STAT 06/15/2018 W/AUTO DIFF 12:51 PM CDT ZZESTIMATED GFR STAT 04/06/2018 12:10 PM CDT CANCER ANTIGEN 19-9 STAT 04/06/2018 Cancer of appendix 12:10 PM CDT CARCINOEMBRYONIC ANTIGEN STAT 04/06/2018 Cancer of appendix (CEA) 12:10 PM CDT COMPREHENSIVE METABOLIC STAT 04/06/2018 Cancer of appendix PANEL 12:10 PM CDT HC COMPLETE BLD COUNT STAT 04/06/2018 Cancer of appendix W/AUTO DIFF 12:[address] CHEST W CONTRAST Routine 02/02/2018 Mucinous adenocarcinoma ABDOMEN W CONTRAST PELVIS 4:09 PM CDT of appendix W CONTRAST CANCER ANTIGEN 125 Routine 02/02/2018 Mucinous adenocarcinoma 12:00 AM CDT of appendix CARCINOEMBRYONIC ANTIGEN Routine 02/02/2018 Mucinous adenocarcinoma (CEA) 12:00 AM CDT of appendix CANCER ANTIGEN 19-9 Routine 02/02/2018 Mucinous adenocarcinoma 12:00 AM CDT of appendix PROTHROMBIN TIME WITH INR Routine 02/02/2018 Mucinous adenocarcinoma 12:00 AM CDT of appendix PARTIAL THROMBOPLASTIN Routine 02/02/2018 Mucinous adenocarcinoma TIME (PTT) 12:00 AM CDT of appendix COMPREHENSIVE METABOLIC Routine 02/02/2018 Mucinous adenocarcinoma PANEL 12:00 AM CDT of appendix CBC WITH PLATELET AND Routine 02/02/2018 Mucinous adenocarcinoma DIFFERENTIAL 12:00 AM CDT of appendix after 01/13/2018 Results * Estimated GFR (09/01/2018 5:08 AM BUSINESS CONTINUITY DIRECTOR) Only the most recent of 4 results within the time period is included. Estimated GFR >=90 mL/min/1.73 m2 [facility] DEPARTMENT OF Comment: PATHOLOGY AND C[employer]oryUnitsInte GENOMIC MEDICINE rpretation G1 >=90 Normal or high G2 60-89Mildly decreased [id number] Mildly to moderately decreased [id number] Moderately to severely decreased G4 15-29Severely decreased G5 <15Kidney failure The eGFR was calculated using the Chronic Kidney Disease Epidemiology Collaboration (CKD-EPI) equation. Interpretation is based on recommendations of the National Kidney Foundation-Kidney Disease Outcomes Quality Initiative (NKF-KDOQI) published in 2014. Specimen Plasma specimen Performing Organization Address City/State/Zipcode Phone Number [facility] DEPARTMENT OF [address] [place] [address] PATHOLOGY AND GENOMIC MEDICINE * CBC with platelet and differential (09/01/2018 5:08 AM BUSINESS CONTINUITY DIRECTOR) Only the most recent of 14 results within the time period is included. WBC 4.70 4.50 - 11.00 k/uL [facility] DEPARTMENT OF PATHOLOGY AND GENOMIC MEDICINE RBC 3.49 (L) 4.20 - 5.50 m/uL [facility] DEPARTMENT OF PATHOLOGY AND GENOMIC MEDICINE HGB 8.1 (L) 12.0 - 16.0 g/dL [facility] DEPARTMENT OF PATHOLOGY AND GENOMIC MEDICINE HCT 27.0 (L) 37.0 - 47.0 % [facility] DEPARTMENT OF PATHOLOGY AND GENOMIC MEDICINE MCV 77.4 (L) 82.0 - 100.0 fL [facility] DEPARTMENT OF PATHOLOGY AND GENOMIC MEDICINE MCH 23.2 (L) 27.0 - 34.0 pg [facility] DEPARTMENT OF PATHOLOGY AND GENOMIC MEDICINE MCHC 30.0 (L) 31.0 - 37.0 g/dL [facility] DEPARTMENT OF PATHOLOGY AND GENOMIC MEDICINE RDW - SD 47.2 37.0 - 55.0 fL [facility] DEPARTMENT OF PATHOLOGY AND GENOMIC MEDICINE MPV 9.1 8.8 - 13.2 fL [facility] DEPARTMENT OF PATHOLOGY AND GENOMIC MEDICINE Platelet count 401 (H) 150 - 400 k/uL [facility] DEPARTMENT OF PATHOLOGY AND GENOMIC MEDICINE Nucleated RBC 0.00 /100 WBC [facility] DEPARTMENT OF PATHOLOGY AND GENOMIC MEDICINE Neutrophils 58.1 39.0 - 69.0 % [facility] DEPARTMENT OF PATHOLOGY AND GENOMIC MEDICINE Lymphocytes 30.4 25.0 - 45.0 % [facility] DEPARTMENT OF PATHOLOGY AND GENOMIC MEDICINE Monocytes 8.7 0.0 - 10.0 % [facility] DEPARTMENT OF PATHOLOGY AND GENOMIC MEDICINE Eosinophils 1.5 0.0 - 5.0 % [facility] DEPARTMENT OF PATHOLOGY AND GENOMIC MEDICINE Basophils 1.1 (H) 0.0 - 1.0 % [facility] DEPARTMENT OF PATHOLOGY AND GENOMIC MEDICINE Immature granulocytes 0.2Comment: "Immature 0.0 - 1.0 % [facility] DEPARTMENT OF granulocytes" (promyelocytes, PATHOLOGY AND myelocytes, metamyelocytes) [facility] Specimen Blood Performing Organization Address City/State/Zipcode Phone Number [facility] DEPARTMENT OF [address] [place] [address] PATHOLOGY AND GENOMIC MEDICINE * Basic metabolic panel (09/01/2018 5:08 AM BUSINESS CONTINUITY DIRECTOR) Only the most recent of 7 results within the time period is included. Sodium 139 135 - 148 mEq/L [facility] DEPARTMENT OF PATHOLOGY AND GENOMIC MEDICINE Potassium 3.6 3.5 - 5.0 mEq/L [facility] DEPARTMENT OF PATHOLOGY AND GENOMIC MEDICINE Chloride 103 98 - 112 mEq/L [facility] DEPARTMENT OF PATHOLOGY AND GENOMIC MEDICINE CO2 22 (L) 24 - 31 mEq/L [facility] DEPARTMENT OF PATHOLOGY AND GENOMIC MEDICINE Anion gap 14@ANIO 7 - 15 mEq/L [facility] DEPARTMENT OF PATHOLOGY AND GENOMIC MEDICINE BUN 5 (L) 8 - 23 mg/dL [facility] DEPARTMENT OF PATHOLOGY AND GENOMIC MEDICINE Creatinine 0.70 0.50 - 0.90 mg/dL [facility] DEPARTMENT OF PATHOLOGY AND GENOMIC MEDICINE Glucose 94 65 - 99 mg/dL [facility] DEPARTMENT OF PATHOLOGY AND GENOMIC MEDICINE Calcium 9.2 8.8 - 10.2 mg/dL [facility] DEPARTMENT OF PATHOLOGY AND GENOMIC MEDICINE Specimen Plasma specimen Performing Organization Address City/State/Zipcode Phone Number [facility] OF [address] [place] [address] PATHOLOGY AND GENOMIC MEDICINE * US Abdominal Paracentesis Imaging (08/31/2018 2:00 PM BUSINESS CONTINUITY DIRECTOR) Narrative Performed At EXAMINATION:US ABDOMINAL PARACENTESIS IMAGING RADIANT CLINICAL HISTORY: ASCITES, abd pain and swellling COMPARISON: CT abdomen pelvis from August 30, 2018 TECHNIQUE: The procedure's risks, benefits, and alternatives were discussed with the patient and written, informed consent was obtained. Preprocedural ultrasound of the abdomen was performed which demonstrates a complex, echogenic masslike lesion within the left upper quadrant. No simple fluid is present. Using ultrasound guidance, a site for needle entry was selected and the overlying skin was prepped and draped in the usual sterile fashion. 1% buffered lidocaine was used for local anesthesia. An 18-gauge needle was advanced into the complex appearing fluid collection aspiration was performed, however no fluid was obtained. The needle was removed and procedure was terminated. The patient tolerated the procedure without difficulty. 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 [facility]-[id number] Procedure Note Interface, Radiology Results Incoming - 08/31/2018 2:22 PM BUSINESS CONTINUITY DIRECTOR EXAMINATION: US ABDOMINAL PARACENTESIS IMAGING CLINICAL HISTORY: ASCITES, abd pain and swellling COMPARISON: CT abdomen pelvis from August 30, 2018 TECHNIQUE: The procedure's risks, benefits, and alternatives were discussed with the patient and written, informed consent was obtained. Preprocedural ultrasound of the abdomen was performed which demonstrates a complex, echogenic masslike lesion within the left upper quadrant. No simple fluid is present. Using ultrasound guidance, a site for needle entry was selected and the overlying skin was prepped and draped in the usual sterile fashion. 1% buffered lidocaine was used for local anesthesia. An 18-gauge needle was advanced into the complex appearing fluid collection aspiration was performed, however no fluid was obtained. The needle was removed and procedure was terminated. The patient tolerated the procedure without difficulty. 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 [facility]-[id number] Performing Organization Address [facility] [place] [address] * Prothrombin time with INR (08/31/2018 4:53 AM BUSINESS CONTINUITY DIRECTOR) Only the most recent of 6 results within the time period is included. Prothrombin time 14.6 (H) 11.5 - 14.5 sec [facility] DEPARTMENT OF PATHOLOGY AND [facility] MEDICINE INR 1.2 [facility] DEPARTMENT OF Comment: PATHOLOGY AND The International Normalized GENOMIC MEDICINE Ratio (INR) is a therapeutic monitoring tool for patients who are stable on oral anticoagulant therapy. An INR of 2.0-3.0 is suggested for deep vein thrombosis/pulmonary embolism. Specimen Blood Performing Organization Address [facility] [place] [address] PATHOLOGY AND [facility] MEDICINE * Carcinoembryonic antigen (CEA) (08/31/2018 4:00 AM BUSINESS CONTINUITY DIRECTOR) Only the most recent of 5 results within the time period is included. CEA 6,426.0 (H) 0.0 - 3.8 ng/mL [facility] DEPARTMENT OF Comment: PATHOLOGY AND Reference range for heavy [facility] MEDICINE smokers:0.0 - 5.5 ng/mL The NAKIA Doris 8000 CEA immunoassay was used. Results obtained with different assay methods or kits should not be used interchangeably and may be different. Specimen Serum Performing Organization Address [facility] [place] [address] PATHOLOGY AND [facility] MEDICINE * Urinalysis screen and microscopy, with reflex to culture (08/30/2018 4:57 PM BUSINESS CONTINUITY DIRECTOR) Only the most recent of 2 results within the time period is included. Specimen site Clean catch [facility] Specimen Urine Performing Organization Address City/State/Zipcode Phone Number [facility] DEPARTMENT OF [address] [place] [address] PATHOLOGY AND GENOMIC MEDICINE [facility] [address] [place] [address] HOSPITAL * CT Abdomen Pelvis W Contrast (08/30/2018 1:21 PM BUSINESS CONTINUITY DIRECTOR) Only the most recent of 2 results within the time period is included. Narrative Performed At EXAMINATION:CT ABDOMEN PELVIS W CONTRAST [facility] CLINICAL HISTORY:ro new mets or abscess causing distention pain TECHNIQUE: Multiple axial images of the abdomen and pelvis were obtained following intravenous administration of iodinated contrast. CT imaging was performed with iterative reconstruction technique and/or automated exposure control to reduce radiation dose. COMPARISON: 07/02/2018 FINDINGS: LUNG BASES: Coronary calcifications are present. ABDOMEN: Liver: Scalloped hepatic contour, increased compared to the prior examination and compatible with pseudomyxoma peritonei. Gallbladder: The gallbladder is not well assessed. Spleen: The spleen is not enlarged. Pancreas: The pancreas is unremarkable. Adrenal Glands: The adrenal glands are unremarkable. Kidneys: The kidneys are unremarkable. No mass, hydronephrosis or calculi. Vascular: There are scattered vascular calcifications. Previously seen hypoattenuating lesions within the left iliofemoral system no longer well appreciated. IVC filter is in place. Bowel: Difficult to evaluate for bowel wall thickening secondary to the extensive ascites. No evidence of obstruction. There are bilateral lower abdominal enterostomies increased fluid extending through the stoma. Ascites/fluid collections: Increased diffuse ascites resulting in worsening scalloping of the hepatic and splenic contours. PELVIS: Enlarging heterogenous low attenuation nodular focus measuring 35 x 49 mm vaginal cuff (previously 29 x 28 mm). MUSCULOSKELETAL: Dystrophic calcifications are present over the left buttocks. Spondylosis. IMPRESSION: 1.Worsening malignant ascites with increased scalloping of the hepatic contour, compatible with pseudomyxoma peritonei. 2.Enlarging heterogenous low-attenuation focus at the vaginal cuff, which is indeterminate. Unclear whether this represents soft tissue or blood products. Consider direct visualization for further evaluation. [id number] Procedure Note Hm Interface, Radiology Results Incoming - 08/30/2018 1:40 PM BUSINESS CONTINUITY DIRECTOR EXAMINATION: CT ABDOMEN PELVIS W CONTRAST CLINICAL HISTORY: ro new mets or abscess causing distention pain TECHNIQUE: Multiple axial images of the abdomen and pelvis were obtained following intravenous administration of iodinated contrast. CT imaging was performed with iterative reconstruction technique and/or automated exposure control to reduce radiation dose. COMPARISON: 07/02/2018 FINDINGS: LUNG BASES: Coronary calcifications are present. ABDOMEN: Liver: Scalloped hepatic contour, increased compared to the prior examination and compatible with pseudomyxoma peritonei. Gallbladder: The gallbladder is not well assessed. Spleen: The spleen is not enlarged. Pancreas: The pancreas is unremarkable. Adrenal Glands: The adrenal glands are unremarkable. Kidneys: The kidneys are unremarkable. No mass, hydronephrosis or calculi. Vascular: There are scattered vascular calcifications. Previously seen hypoattenuating lesions within the left iliofemoral system no longer well appreciated. IVC filter is in place. Bowel: Difficult to evaluate for bowel wall thickening secondary to the extensive ascites. No evidence of obstruction. There are bilateral lower abdominal enterostomies increased fluid extending through the stoma. Ascites/fluid collections: Increased diffuse ascites resulting in worsening scalloping of the hepatic and splenic contours. PELVIS: Enlarging heterogenous low attenuation nodular focus measuring 35 x 49 mm vaginal cuff (previously 29 x 28 mm). MUSCULOSKELETAL: Dystrophic calcifications are present over the left buttocks. Spondylosis. IMPRESSION: 1. Worsening malignant ascites with increased scalloping of the hepatic contour, compatible with pseudomyxoma peritonei. 2. Enlarging heterogenous low-attenuation focus at the vaginal cuff, which is indeterminate. Unclear whether this represents soft tissue or blood products. Consider direct visualization for further evaluation. [id number] Performing Organization Address City/[facility]/Zipcode Phone Number [facility] [address] [place] [address] * Gram stain (08/30/2018 10:50 AM BUSINESS CONTINUITY DIRECTOR) Gram stain result No WBC's or organisms seen. [facility] DEPARTMENT OF Comment: PATHOLOGY AND Specimen Information GENOMIC MEDICINE Specimen Source: Urine Specimen Site: Clean catch Specimen Urine Performing Organization Address [facility] Centercode Phone Number [address] [address] PATHOLOGY AND GENOMIC MEDICINE * Urine culture (08/30/2018 10:50 AM BUSINESS CONTINUITY DIRECTOR) Urine culture isolate [facility] DEPARTMENT OF ~Mixed PATHOLOGY AND nav <=10-3 GENOMIC MEDICINE col/cc Mixed nav <=10-3 col/cc (A) Comment: Specimen Information Specimen Source: Urine Specimen Site: Clean catch Urine culture isolate Streptococcus group B [facility] DEPARTMENT OF 10-4 cfu/ml PATHOLOGY AND (A) GENOMIC MEDICINE Specimen Urine Performing Organization Address City/[facility] [place] [address] PATHOLOGY AND GENOMIC MEDICINE * Lipase level (08/30/2018 10:50 AM BUSINESS CONTINUITY DIRECTOR) Lipase 25 13 - 60 U/L [facility] DEPARTMENT OF PATHOLOGY AND GENOMIC MEDICINE Specimen Plasma specimen Performing Organization Address [facility] [place] [address] PATHOLOGY AND GENOMIC MEDICINE * Comprehensive metabolic panel (08/30/2018 10:50 AM BUSINESS CONTINUITY DIRECTOR) Only the most recent of 7 results within the time period is included. Sodium 141 135 - 148 mEq/L [facility] DEPARTMENT OF PATHOLOGY AND GENOMIC MEDICINE Potassium 3.9 3.5 - 5.0 mEq/L [facility] DEPARTMENT OF PATHOLOGY AND GENOMIC MEDICINE Chloride 101 98 - 112 mEq/L [facility] DEPARTMENT OF PATHOLOGY AND GENOMIC MEDICINE CO2 26 24 - 31 mEq/L [facility] DEPARTMENT OF PATHOLOGY AND GENOMIC MEDICINE Anion gap 14@ANIO 7 - 15 mEq/L [facility] DEPARTMENT OF PATHOLOGY AND GENOMIC MEDICINE BUN 10 8 - 23 mg/dL [facility] DEPARTMENT OF PATHOLOGY AND GENOMIC MEDICINE Creatinine 0.81 0.50 - 0.90 mg/dL [facility] DEPARTMENT OF PATHOLOGY AND GENOMIC MEDICINE Glucose 94 65 - 99 mg/dL [facility] DEPARTMENT OF PATHOLOGY AND GENOMIC MEDICINE Calcium 9.8 8.8 - 10.2 mg/dL [facility] DEPARTMENT OF PATHOLOGY AND GENOMIC MEDICINE Protein 8.6 (H) 6.3 - 8.3 g/dL [facility] DEPARTMENT OF Comment: PATHOLOGY AND [place] GENOMIC MEDICINE 4.6-7.0 g/dL 1 week 4.4-7.6 g/dL 7 months-1year 5.1-7.3 g/dL 1-2 years5.6-7 .5 g/dL >3 years6.0-8 .0 g/dL 18-150 6.3-8.3 g/dL Albumin 2.8 (L) 3.5 - 5.0 g/dL [facility] DEPARTMENT OF PATHOLOGY AND GENOMIC MEDICINE A/G ratio 0.5 (L) 0.7 - 3.8 [facility] DEPARTMENT OF PATHOLOGY AND GENOMIC MEDICINE Alkaline phosphatase 158 (H) 35 - 104 U/L [facility] DEPARTMENT OF PATHOLOGY AND GENOMIC MEDICINE AST 25 10 - 35 U/L [facility] DEPARTMENT OF PATHOLOGY AND GENOMIC MEDICINE ALT 25 5 - 50 U/L [facility] DEPARTMENT OF PATHOLOGY AND GENOMIC MEDICINE Total bilirubin 0.6 0.0 - 1.2 mg/dL [facility] DEPARTMENT OF PATHOLOGY AND GENOMIC MEDICINE Specimen Plasma specimen Performing Organization Address [facility] Phone Number [facility] DEPARTMENT OF [address] [place] [address] PATHOLOGY AND GENOMIC MEDICINE * ECG 12 lead (08/30/2018 10:13 AM BUSINESS CONTINUITY DIRECTOR) Only the most recent of 3 results within the time period is included. Ventricular rate 104 [facility] MUSE Atrial rate 104 [facility] MUSE TN interval 150 [facility] MUSE QRSD interval 100 [facility] MUSE QT interval 344 [facility] M[facility] QTC interval 452 [facility] MUSE P axis 1 44 [facility] MUSE QRS axis 1 -36 [facility] MUSE T wave axis 48 [facility] MUSE EKG impression Sinus tachycardia-Left axis [facility] MUSE deviation-Minimal voltage criteria for LVH, may be normal variant-Abnormal ECG-In automated comparison with ECG of 20-JUN-2018 14:51,-premature ventricular complexes are no longer present- Performing Organization Address 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 The pulmonary vasculature is normal. There are no acute infiltrates or effusions. Mild interstitial scarring is noted. Degenerative changes of the osseous structures. 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 The pulmonary vasculature is normal. There are no acute infiltrates or effusions. Mild interstitial scarring is noted. Degenerative changes of the osseous structures. [id number] Performing Organization Address [facility]/Zipcode Phone Number [facility] [address] [place] [address] * XR Foot 3+ Vw Left (07/30/2018 3:59 PM CDT) Narrative Performed At EXAMINATION:XR FOOT 3VW LEFT [facility] CLINICAL HISTORY:M79.672 Pain in left foot, foot pain COMPARISON:None. IMPRESSION: There is no evidence of acute left foot fracture or dislocation. Joint spaces are preserved. Bone mineralization is normal. There is calcaneal enthesophyte at the insertion of the Achilles tendon. No radiopaque foreign body noted. [facility]-[id number] Procedure Note Hm Interface, Radiology Results Incoming - 07/30/2018 4:39 PM CDT EXAMINATION: XR FOOT 3 VW LEFT CLINICAL HISTORY: M79.672 Pain in left foot, foot pain COMPARISON: None. IMPRESSION: There is no evidence of acute left foot fracture or dislocation. Joint spaces are preserved. Bone mineralization is normal. There is calcaneal enthesophyte at the insertion of the Achilles tendon. No radiopaque foreign body noted. [facility]-[id number] Performing Organization Address [facility] Phone Number [facility] [address] [place] [address] * Cancer antigen 19-9 (07/03/2018 2:55 PM CDT) Only the most recent of 3 results within the time period is included. CA 19-9 <1 0 - 35 U/mL [facility] DEPARTMENT OF Comment: PATHOLOGY AND The Nakia Doris 8000 CA19-9 GENOMIC MEDICINE immunoassay was used. Results obtained with different assay methods or kits should not be used interchangeably and may be different. Specimen Plasma specimen Performing Organization Address City/[facility]/Zipcode Phone Number [facility] DEPARTMENT OF [address] [place] [address] PATHOLOGY AND GENOMIC MEDICINE * Magnesium level (07/03/2018 2:55 PM CDT) Magnesium 2.0 1.6 - 2.4 mg/dL [facility] DEPARTMENT OF PATHOLOGY AND GENOMIC MEDICINE Specimen Plasma specimen Performing Organization Address City/[facility] [place] [address] PATHOLOGY AND GENOMIC MEDICINE * Ferritin level (07/03/2018 2:55 PM CDT) Only the most recent of 2 results within the time period is included. Ferritin level 445 (H) 13 - 150 ng/mL [facility] DEPARTMENT OF PATHOLOGY AND GENOMIC MEDICINE Specimen Plasma specimen Performing Organization Address City/[facility] [place] [address] PATHOLOGY AND GENOMIC MEDICINE * Estimated GFR (06/21/2018 12:02 AM CDT) Only the most recent of 8 results within the time period is included. GFR Non Af Amer 83 mL/min/1.73 m2 [facility] DEPARTMENT OF PATHOLOGY AND GENOMIC MEDICINE GFR Af Amer >90 mL/min/1.73 m2 [facility] DEPARTMENT OF Comment: PATHOLOGY AND Chronic kidney disease: <60 GENOMIC MEDICINE mL/min/1.73m2 Kidney failure: <15 mL/min/1.73m2 The estimated GFR is calculated from the IDMS-traceable Modification of Diet in Renal Disease Equation. The accuracy of the calculation is poor when the creatinine is normal. Calculated values >90 mL/min/1.73m2 are not reported. This equation has not been validated in children (<18 years), women, the elderly (>70 years), or ethnic groups other than Caucasians and Americans. Specimen Plasma specimen Performing Organization Address [facility] [place] [address] PATHOLOGY AND GENOMIC MEDICINE * Transfuse RBC (06/20/2018 6:45 PM CDT) * Surgical pathology request (06/20/2018 5:02 PM CDT) [facility] DEPARTMENT OF PATHOLOGY AND GENOMIC MEDICINE Surgical pathology report See link below for PDF Lab [facility] DEPARTMENT OF Report PATHOLOGY AND GENOMIC MEDICINE Result status This is Final Report for [facility] DEPARTMENT OF [id number] PATHOLOGY AND GENOMIC MEDICINE Performing Organization Address City/[facility] [place] [address] PATHOLOGY AND GENOMIC MEDICINE * Prepare RBC, 1 Units (06/20/2018 11:35 AM CDT) Product name Red Blood Cells -1, Leukored [facility] DEPARTMENT OF PATHOLOGY AND GENOMIC MEDICINE Unit number [id number] [facility] DEPARTMENT OF PATHOLOGY AND GENOMIC MEDICINE Product code [id number] [facility] DEPARTMENT OF PATHOLOGY AND GENOMIC MEDICINE Dispense status Transfused [facility] DEPARTMENT OF PATHOLOGY AND GENOMIC MEDICINE Blood expiration date [id number] [facility] DEPARTMENT OF PATHOLOGY AND GENOMIC MEDICINE Blood type code 8400 [facility] DEPARTMENT OF PATHOLOGY AND GENOMIC MEDICINE Blood type AB POSITIVE [facility] DEPARTMENT OF PATHOLOGY AND GENOMIC MEDICINE Performing Organization Address [facility] [address] PATHOLOGY AND GENOMIC MEDICINE * Type and screen (06/20/2018 11:35 AM CDT) Only the most recent of 2 results within the time period is included. ABO grouping AB [facility] DEPARTMENT OF PATHOLOGY AND GENOMIC MEDICINE Rh type POS [facility] DEPARTMENT OF PATHOLOGY AND GENOMIC MEDICINE Antibody screen (gel) NEG [facility] DEPARTMENT OF PATHOLOGY AND GENOMIC MEDICINE Specimen Blood Performing Organization Address [facility] Phone Number [facility] [place] [address] PATHOLOGY AND [facility] MEDICINE * D-dimer (06/19/2018 4:45 AM CDT) D-dimer 11.78 (H) 0.00 - 0.40 ug/mL FEU [facility] DEPARTMENT OF Comment: PATHOLOGY AND Units are ug/ml Fibrinogen GENOMIC MEDICINE Equivalent Unit. When combined with low clinical probability, D-dimer results of less than 0.5 ug/ml FEU have a good negativepredictive value in excluding PE or DVT. For D-dimer results greater than 0.5ug/ml FEU further testing is indicated if PE or DVT is suspectedclinically. Elevated D-dimer results have been reported in DVT, PE, and DIC cases and may indicate the presence of a clot. D-dimer results may be elevated due to old age, , inflammatory diseases, trauma, post-operative states, sepsis, and malignancies. Specimen Blood Performing Organization Address City/[facility] [place] [address] PATHOLOGY AND [facility] MEDICINE * IR IVC Filter Placement (06/18/2018 1:57 PM CDT) Narrative Performed At Performing Radiologist PARISA Seals MD Assistants None Anesthesia Type Lidocaine 1% was used for local anesthetic. Moderate sedation was administered by the procedure nurse and monitored by the procedure physician for total bpqb-dv-kocf sedation time of 34 minutes. Pre Procedure Diagnosis 68-year-old woman with deep venous thrombus. Post Procedure Diagnosis Status post inferior vena cava filter placement. Procedure 1. Inferior vena cavogram 2. Placement of a retrievable inferior vena cava filter Technique Written informed consent was obtained prior to the procedure. All elements of maximal sterile barrier technique were followed. The patient's right groin was sterilely prepared and draped in the routine manner. Lidocaine 1% was used for local anesthetic. Using real-time ultrasound guidance, a 21-gauge micropuncture needle was used to access the right common femoral vein. A 0.018 inch guidewire was advanced centrally under fluoroscopy. The needle was removed, and a micropuncture sheath system was then placed over the guidewire. Under ultrasound guidance, documentation of vessel patency, needle access with permanent recording, and reporting are performed followed by placement of a sheath in the right common femoral vein. The inner dilator and guidewire were then removed, and a 0.035 inch J-wire was advanced through the micropuncture sheath and into the inferior vena cava under fluoroscopy. The micropuncture sheath was removed and a 5-Divehi pigtail catheter was then placed over the guidewire and advanced into the low inferior vena cava. An inferior vena cavagram was then performed with injection of contrast. Exchange was then made for the delivery system for Celect retrievable inferior vena cava filter. Using the filter deployment device, the Celect filter was advanced, positioned, and deployed within the infrarenal inferior vena cava. A completion inferior cavagram was then performed through the delivery sheath of the Celect filter. The delivery sheath was removed and hemostasis was achieved with manual compression. The patient tolerated the procedure well. Radiation Dose Ka,r=368 mGy Complications None Specimens Removed None Estimated Blood Loss Less than 1 mL Blood/Blood Products Administered None Grafts/Implants As described in the above repor Impression: 1. An initial inferior vena cavogram demonstrates a normal caliber inferior vena cava. There is no caval thrombus. Inflow from the left common iliac vein and left and right renal veins is noted. 2. Successful placement of a Celect retrievable inferior vena cava filter within the infrarenal inferior vena cava. A completion inferior vena cavogram demonstrates all legs of the filter to be completely deployed with no complications. [facility]-[id number] Procedure Note [facility], Radiology Results Incoming - 06/18/2018 4:33 PM CDT Performing Radiologist Shmuel Seals MD Assistants None Anesthesia Type Lidocaine 1% was used for local anesthetic. Moderate sedation was administered by the procedure nurse and monitored by the procedure physician for total iacp-vc-dmne sedation time of 34 minutes. Pre Procedure Diagnosis 68-year-old woman with deep venous thrombus. Post Procedure Diagnosis Status post inferior vena cava filter placement. Procedure 1. Inferior vena cavogram 2. Placement of a retrievable inferior vena cava filter Technique Written informed consent was obtained prior to the procedure. All elements of maximal sterile barrier technique were followed. The patient's right groin was sterilely prepared and draped in the routine manner. Lidocaine 1% was used for local anesthetic. Using real-time ultrasound guidance, a 21-gauge micropuncture needle was used to access the right common femoral vein. A 0.018 inch guidewire was advanced centrally under fluoroscopy. The needle was removed, and a micropuncture sheath system was then placed over the guidewire. Under ultrasound guidance, documentation of vessel patency, needle access with permanent recording, and reporting are performed followed by placement of a sheath in the right common femoral vein. The inner dilator and guidewire were then removed, and a 0.035 inch J-wire was advanced through the micropuncture sheath and into the inferior vena cava under fluoroscopy. The micropuncture sheath was removed and a 5-Divehi pigtail catheter was then placed over the guidewire and advanced into the low inferior vena cava. An inferior vena cavagram was then performed with injection of contrast. Exchange was then made for the delivery system for Celect retrievable inferior vena cava filter. Using the filter deployment device, the Celect filter was advanced, positioned, and deployed within the infrarenal inferior vena cava. A completion inferior cavagram was then performed through the delivery sheath of the Celect filter. The delivery sheath was removed and hemostasis was achieved with manual compression. The patient tolerated the procedure well. Radiation Dose Ka,r=368 mGy Complications None Specimens Removed None Estimated Blood Loss Less than 1 mL Blood/Blood Products Administered None Grafts/Implants As described in the above repor Impression: 1. An initial inferior vena cavogram demonstrates a normal caliber inferior vena cava. There is no caval thrombus. Inflow from the left common iliac vein and left and right renal veins is noted. 2. Successful placement of a Celect retrievable inferior vena cava filter within the infrarenal inferior vena cava. A completion inferior vena cavogram demonstrates all legs of the filter to be completely deployed with no complications. [facility]-[id number] Performing Organization Address City/State/Zipcode Phone Number [facility] [address] [place] [address] * Partial thromboplastin time, activated (06/18/2018 10:55 AM CDT) Only the most recent of 5 results within the time period is included. PTT 25.2 23.0 - 36.0 sec [facility] DEPARTMENT OF Comment: PATHOLOGY AND PTT therapeutic range for [facility] unfractionated heparin is 61.0-112.0 seconds which corresponds to Anti-Xa 0.3-0.7 U/ml. Specimen Blood Performing Organization Address [facility] Phone Number [facility] [address] [place] [address] PATHOLOGY AND GENOMIC MEDICINE * CT Abdomen WWO Contrast, Pelvis W Contrast (06/16/2018 12:35 PM CDT) Narrative Performed At EXAMINATION:CT ABDOMEN WWO CONTRAST PELVIS W CONTRAST [facility] CLINICAL HISTORY:re-evaluate appendicial cancer TECHNIQUE: Noncontrast images of the abdomen were obtained. Subsequently, axial images of the abdomen and pelvis were obtained following intravenous administration of iodinated contrast. Sagittal and coronal computerized reformatted images were also obtained.. All CT images were acquired using low-dose technique with automated exposure control. COMPARISON: February 02, 2018 FINDINGS: Abdomen: 1.Interval increase in peritoneal carcinomatosis and ascites. There is scalloping along the liver as well as the spleen and portal vein. Interval development of mild scalloping along the anterior pancreatic body. 2.Small hiatal hernia. 3.14 mm enhancing nodule in the right hepatic lobe unchanged relative to prior. 4.The portal vein, SMV, and splenic vein are patent. There are atherosclerotic changes involving the abdominal aorta. No retroperitoneal lymphadenopathy. 5.The gallbladder is relatively decompressed. There is no intrahepatic biliary distention. 6.Soft tissue infiltration at the level of the left ostomy is concerning for tumor in the subcutaneous tissues. There is a right abdominal wall ostomy that is patent. 7.Large and small bowel loops are of normal caliber without evidence for obstruction. 8.The adrenal glands, and kidneys appear normal. Simplified Preoperative Assessment for Appendix Tumor (SPAAT) Presence of liver, spleen, pancreas, or portal vein scalloping: Liver: Yes, 1. Spleen: Yes, 1. Pancreas: Yes, 1. Portal vein: Yes, 1. Mesenteric foreshortening: No, 0 points Total points: 4 Reference: Annals of Surgical Oncology July 2015, Volume 22, Issue 11, pages 0281-7243. Pelvis: 1.There is low attenuation material in addition to air within the vagina measuring 3.0 x 3.2 x 3.1 cm and may relate to sequela of bleeding/clot. The possibility of infection particularly given the presence of air cannot be excluded. 2.Osseous structures are intact. 3.The uterus is surgically absent. IMPRESSION: 1.Postsurgical changes relating to right hemicolectomy. There is a right abdominal ileostomy. A left abdominal colostomy is patent however there is interval development of soft tissue infiltration in the subcutaneous tissues at the ostomy site concerning for tumor/progression of metastatic disease. 2.Interval increase in peritoneal carcinomatosis and ascites. 3.Low-attenuation material within the vaginal vault with a small focus of air may relate to sequela of bleeding and clot. The possibility of infection cannot be excluded. 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 Subsequently, axial images of the abdomen and pelvis were obtained following intravenous administration of iodinated contrast. Sagittal and coronal computerized reformatted images were also obtained.. All CT images were acquired using low-dose technique with automated exposure control. COMPARISON: February 02, 2018 FINDINGS: Abdomen: 1. Interval increase in peritoneal carcinomatosis and ascites. There is scalloping along the liver as well as the spleen and portal vein. Interval development of mild scalloping along the anterior pancreatic body. 2. Small hiatal hernia. 3. 14 mm enhancing nodule in the right hepatic lobe unchanged relative to prior. 4. The portal vein, SMV, and splenic vein are patent. There are atherosclerotic changes involving the abdominal aorta. No retroperitoneal lymphadenopathy. 5. The gallbladder is relatively decompressed. There is no intrahepatic biliary distention. 6. Soft tissue infiltration at the level of the left ostomy is concerning for tumor in the subcutaneous tissues. There is a right abdominal wall ostomy that is patent. 7. Large and small bowel loops are of normal caliber without evidence for obstruction. 8. The adrenal glands, and kidneys appear normal. Simplified Preoperative Assessment for Appendix Tumor (SPAAT) Presence of liver, spleen, pancreas, or portal vein scalloping: Liver: Yes, 1. Spleen: Yes, 1. Pancreas: Yes, 1. Portal vein: Yes, 1. Mesenteric foreshortening: No, 0 points Total points: 4 Reference: Annals of Surgical Oncology July 2015, Volume 22, Issue 11, pages 2143-4119. Pelvis: 1. There is low attenuation material in addition to air within the vagina measuring 3.0 x 3.2 x 3.1 cm and may relate to sequela of bleeding/clot. The possibility of infection particularly given the presence of air cannot be excluded. 2. Osseous structures are intact. 3. The uterus is surgically absent. IMPRESSION: 1. Postsurgical changes relating to right hemicolectomy. There is a right abdominal ileostomy. A left abdominal colostomy is patent however there is interval development of soft tissue infiltration in the subcutaneous tissues at the ostomy site concerning for tumor/progression of metastatic disease. 2. Interval increase in peritoneal carcinomatosis and ascites. 3. Low-attenuation material within the vaginal vault with a small focus of air may relate to sequela of bleeding and clot. The possibility of infection cannot be excluded. [facility]-[id number] Performing Organization Address [facility] Centercode Phone Number [facility] [address] [place] [address] * Iron level (06/16/2018 3:19 AM CDT) Only the most recent of 2 results within the time period is included. Iron level 46 37 - 145 ug/dL [facility] DEPARTMENT OF PATHOLOGY AND GENOMIC MEDICINE Specimen Plasma specimen Performing Organization Address [facility] Centercode Phone Number [address] [address] PATHOLOGY AND GENOMIC MEDICINE * Haptoglobin (06/16/2018 3:19 AM CDT) Only the most recent of 2 results within the time period is included. Haptoglobin 282 (H) 30 - 200 mg/dL [facility] DEPARTMENT OF PATHOLOGY AND GENOMIC MEDICINE Specimen Plasma specimen Performing Organization Address [facility]/Zipcode Phone Number [facility] DEPARTMENT OF [address] [place] [address] PATHOLOGY AND GENOMIC MEDICINE * CT Angiogram Pe Chest (06/15/2018 7:50 PM CDT) Narrative Performed At CT ANGIOGRAM PE CHEST [facility] CLINICAL INDICATION: PE suspectedhigh pretest prob COMPARISON:CT 02/02/2018. TECHNIQUE:CT angiographic images of the chest were obtained during intravenous administration of iodinated contrast.Computerized, reformatted images and 3-D MIP images were obtained and archived (per CT pulmonary embolism protocol). CT scans are performed using radiation dose reduction techniques (iterative reconstruction and/or automated exposure control). Technical factors are evaluated and adjusted to ensure appropriate moderation of exposure. Automated dose management technology is applied to adjust radiation exposure while achieving a diagnostic quality image. FINDINGS: Pulmonary arteries: Diagnostic quality of study is adequate for the evaluation of pulmonary embolism. There is no evidence of acute or chronic pulmonary embolism.No evidence of right heart strain. The main pulmonary artery measures 27 mm in luminal diameter. Aorta:No aneurysm or dissection. Mild calcific atherosclerosis. Lungs and large airways:Mild basilar subsegmental atelectasis/scarring. No focal or confluent airspace consolidation. Pleura:No pleural effusion, pleural thickening, or pneumothorax. Heart and pericardium:Heart size is normal. No pericardial effusion. Mediastinum and denia:No mass or hematoma. Lymph nodes:No pathological adenopathy in the denia, axilla or mediastinum. Chest wall:Unremarkable. Bones:Moderate-severe degenerative changes of the thoracic spine. Upper abdomen: Scalloping of liver contour as before. Ascites. IMPRESSION: 1. Negative CTA examination for pulmonary embolism. 2. Lungs without focal or confluent airspace consolidation. 3. In the visualized upper abdomen, scalloping of liver contour and ascites. [facility]-[id number] Procedure Note Interface, Radiology Results Incoming - 06/15/2018 8:[address] ANGIOGRAM PE CHEST CLINICAL INDICATION: PE suspected high pretest prob COMPARISON: CT 02/02/2018. TECHNIQUE: CT angiographic images of the chest were obtained during intravenous administration of iodinated contrast. Computerized, reformatted images and 3-D MIP images were obtained and archived (per CT pulmonary embolism protocol). CT scans are performed using radiation dose reduction techniques (iterative reconstruction and/or automated exposure control). Technical factors are evaluated and adjusted to ensure appropriate moderation of exposure. Automated dose management technology is applied to adjust radiation exposure while achieving a diagnostic quality image. FINDINGS: Pulmonary arteries: Diagnostic quality of study is adequate for the evaluation of pulmonary embolism. There is no evidence of acute or chronic pulmonary embolism. No evidence of right heart strain. The main pulmonary artery measures 27 mm in luminal diameter. Aorta: No aneurysm or dissection. Mild calcific atherosclerosis. Lungs and large airways: Mild basilar subsegmental atelectasis/scarring. No focal or confluent airspace consolidation. Pleura: No pleural effusion, pleural thickening, or pneumothorax. Heart and pericardium: Heart size is normal. No pericardial effusion. Mediastinum and denia: No mass or hematoma. Lymph nodes: No pathological adenopathy in the denia, axilla or mediastinum. Chest wall: Unremarkable. Bones: Moderate-severe degenerative changes of the thoracic spine. Upper abdomen: Scalloping of liver contour as before. Ascites. IMPRESSION: 1. Negative CTA examination for pulmonary embolism. 2. Lungs without focal or confluent airspace consolidation. 3. In the visualized upper abdomen, scalloping of liver contour and ascites. [facility]-[id number] Performing Organization Address [facility] Centercode Phone Number [address] [address] * Troponin (06/15/2018 6:23 PM CDT) Troponin <0.30 0.00 - 0.30 ng/mL [facility] DEPARTMENT OF Comment: PATHOLOGY AND 0.30 - 1.49 GENOMIC MEDICINE ng/mlMay indicate increased risk of acute coronary syndrome. >=1.5 ng/ml Consistent with acute myocardial infarction. The diagnostic value of a single normal or non-diagnostic result is questionable.Serial samples at 2-6 hour intervals are required to rule out acute myocardial injury. Specimen Plasma specimen Performing Organization Address City/[facility]/Zipcode Phone Number [address] [address] PATHOLOGY AND GENOMIC MEDICINE * Total iron binding capacity (06/15/2018 6:20 PM CDT) Iron level 54 37 - 145 ug/dL [facility] DEPARTMENT OF PATHOLOGY AND GENOMIC MEDICINE Iron binding capacity 355 200 - 400 ug/dL [facility] DEPARTMENT OF PATHOLOGY AND GENOMIC MEDICINE % Saturation 15.2 15.0 - 38.0 % [facility] DEPARTMENT OF PATHOLOGY AND GENOMIC MEDICINE Specimen Plasma specimen Performing Organization Address [facility] Centercode Phone Number [facility] [place] [address] PATHOLOGY AND GENOMIC MEDICINE * Hemoglobin & hematocrit (06/15/2018 6:20 PM CDT) HGB 9.2 (L) 12.0 - 16.0 g/dL [facility] DEPARTMENT OF PATHOLOGY AND GENOMIC MEDICINE HCT 31.0 (L) 37.0 - 47.0 % [facility] DEPARTMENT OF PATHOLOGY AND GENOMIC MEDICINE Specimen Blood Performing Organization Address [facility] Centercode Phone Number [facility] [place] [address] PATHOLOGY AND GENOMIC MEDICINE * LDH (06/15/2018 6:20 PM CDT) LDH 355 (H) 87 - 225 U/L [facility] DEPARTMENT OF PATHOLOGY AND GENOMIC MEDICINE Specimen Plasma specimen Performing Organization Address [facility] Centercode Phone Number [facility] [place] [address] PATHOLOGY AND GENOMIC MEDICINE * Folate level (06/15/2018 6:20 PM CDT) Folate >20.0 4.8 - 24.2 ng/mL [facility] DEPARTMENT OF PATHOLOGY AND GENOMIC MEDICINE Specimen Serum Performing Organization Address [facility]ercode Phone Number [facility] [place] [address] PATHOLOGY AND GENOMIC MEDICINE * Vitamin B12 level (06/15/2018 6:20 PM CDT) Vitamin B12 >1600 (H) 211 - 946 pg/mL [facility] DEPARTMENT OF Comment: PATHOLOGY AND Significant overlap exists GENOMIC MEDICINE between normal and deficiency states. However, most patients with deficiencies will have Serum B12 <200 pg/mL. Specimen Serum Performing Organization Address [facility] Centercode Phone Number [facility] [place] [address] PATHOLOGY AND GENOMIC MEDICINE * Pv duplex venous lower extremity (06/15/2018 5:58 PM CDT) Narrative Performed At [facility] Vascular Ultrasound Laboratory Lower Extremity Venous Report [address] [place] [address] Pat.Name:JAMES REYNOSO.ID:[id number] St.Date: 06/15/2018 Refer.MD:HUSSEIN CAVANAUGH MD Exam Time: 5:29:00 PMStudy Type:LE Venous Height:66inDOBAge: [age]Y Sex: FEMALESonogrphr: Newton Vi, RVT Pat. Stat.:Inpatient Room:[address] TapeVol: PABLITO, [facility] - 4: [id number] Echo Event ID:[id number] Order ID:[id number] Reason for Study:Bilateral leg swelling. History of left lower extremity in 1998 per patient. Procedures:Colorflow, Grayscale/2D, Pulsed wave Doppler Race:B SUMMARY: DUPLEX SCAN OBSERVATIONS Deep VeinsSuperficial Veins RightLeft RightLeft EIV GSV (prox) NormalObstructed CFV Normal Obstructed (above knee) Femoral Normal Obstructed GSV (dist) Normal Normal Profunda Normal Partial (below knee) Popliteal Normal Normal PT (prox) Normal NormalSSV Normal Normal PT (dist) Normal Normal Peroneal Normal Not Visualized Soleal Obstructed RIGHT:There is normal compressibility with no evidence of echogenic material noted within the lumen of the visualized veins. LEFT: The common femoral vein, femoral vein, soleal vein, and greater saphenous vein at saphenous femoral junction are dilated, non-compressible and filled with mixed echogenic material within the lumen. Colorflow and Doppler signals are absent. The profunda femoris vein is dilated, partially compressible and filled with mixed echogenic material within the lumen. Colorflow and Doppler signals are diminished. All other remaining veins are patent. PRELIMINARY FINDINGS 1. Total obstructed deep venous thrombosis of left common femoral vein, femoral vein, soleal vein. 2. Partial deep venous thrombosis of left profunda femoris vein. 3. Total obstructed superficial venous thrombosis of left greater saphenous vein at saphenous femoral junction. Result given to LIZBET Hwang at 18:02 PM on 06/15/2018. PHYSICIAN INTERPRETATION Venous examination of the both lower extremities demonstrated deep venous thrombosis of left common femoral vein, femoral vein, soleal vein and a partial deep venous thrombosis of left profunda femoris vein. Superficial venous thrombosis of left greater saphenous vein at saphenous femoral junction. Signed 06/15/2018 06:39 PM Jack Hernandez MD, RPVI Procedure Note Interface, Radiology Results In - 06/15/2018 6:40 PM CDT Vascular Ultrasound Laboratory Lower Extremity Venous Report [address] [address], [place] [address] Pat.Name: JAMES REYNOSO.ID: [id number] .Date: 06/15/2018 Refer.MD: HUSSEIN CAVANAUGH MD Exam Time: 5:29:00 PM Study Type:LE Venous Height: 66in Age: 7 1950,68Y Sex: FEMALE Sonogrphr: Aman Marcum RVT Pat. Stat.:Inpatient Room: [address] Tape Vol: , CPT - 4: [id number] Echo Event ID:[id number] Order ID: [id number] Reason for Study:Bilateral leg swelling. History of left lower extremity in 1998 per patient. Procedures:Colorflow, Grayscale/2D, Pulsed wave Doppler Race: B SUMMARY: DUPLEX SCAN OBSERVATIONS Deep Veins Superficial Veins Right Left Right Left EIV GSV (prox) Normal Obstructed CFV Normal Obstructed (above knee) Femoral Normal Obstructed GSV (dist) Normal Normal Profunda Normal Partial (below knee) Popliteal Normal Normal PT (prox) Normal Normal SSV Normal Normal PT (dist) Normal Normal Peroneal Normal Not Visualized Soleal Obstructed RIGHT: There is normal compressibility with no evidence of echogenic material noted within the lumen of the visualized veins. LEFT: The common femoral vein, femoral vein, soleal vein, and greater saphenous vein at saphenous femoral junction are dilated, non-compressible and filled with mixed echogenic material within the lumen. Colorflow and Doppler signals are absent. The profunda femoris vein is dilated, partially compressible and filled with mixed echogenic material within the lumen. Colorflow and Doppler signals are diminished. All other remaining veins are patent. PRELIMINARY FINDINGS 1. Total obstructed deep venous thrombosis of left common femoral vein, femoral vein, soleal vein. 2. Partial deep venous thrombosis of left profunda femoris vein. 3. Total obstructed superficial venous thrombosis of left greater saphenous vein at saphenous femoral junction. Result given to LIZBET Hwang at 18:02 PM on 06/15/2018. PHYSICIAN INTERPRETATION Venous examination of the both lower extremities demonstrated deep venous thrombosis of left common femoral vein, femoral vein, soleal vein and a partial deep venous thrombosis of left profunda femoris vein. Superficial venous thrombosis of left greater saphenous vein at saphenous femoral junction. 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 Please perform with POIV and rectal contrast. TECHNIQUE:Multiple axial images of the chest, abdomen, and pelvis were obtained following intravenous administration of iodinated contrast. Oral and rectal contrast were also administered as requested. Sagittal and coronal computerized reformatted images were obtained. CT imaging was performed with iterative reconstruction techniques and/or automated exposure control to reduce radiation dose. COMPARISON:Previous studies, the most recent dated 01/09/2018 IMPRESSION: Chest: 1. The heart size is normal. Coronary artery atherosclerotic changes are present particularly in the LAD and circumflex. There is no pericardial effusion. The thoracic aorta is minimally atherosclerotic without evidence of aneurysm. 2.There is no evidence of mediastinal or hilar mass or adenopathy. 3.There are no focal consolidations, suspicious pulmonary nodules, or pleural effusions. Minimal triangular pleural-based nodule is noted along the left major fissure. Abdomen: 1. There is scalloping of the liver surface and to a lesser extent along the portal vein. A 1.1 cm hypervascular focus is present in segment 5 and is most consistent with a benign process, FNH. 2.There is minimal scalloping along the spleen surface. The gallbladder is contracted. There are no renal or adrenal masses. The pancreas is unremarkable. 3.The abdominal aorta is atherosclerotic without evidence of aneurysm. There is no evidence of retroperitoneal mass or adenopathy. 4.There are postoperative changes related to right hemicolectomy. A colostomy is present in the left mid abdomen. An ileostomy is noted in the right mid abdomen. There is minimal serosal soft tissue thickening along the distal sigmoid colon. 5.There is peritoneal carcinomatosis. A small amount of abdominal ascites is present. 6.Simplified Preoperative Assessment for Appendix Tumor (SPAAT) Presence of liver, spleen, pancreas, or portal vein scalloping: Liver:Yes. 1 point Spleen:Yes. 1 point Pancreas:No. Zero points Portal vein:Yes. 1 point Mesenteric foreshortening:No. Zero points Total points: 3 Reference: Annals of Surgical Oncology July 2015, Volume 22, Issue 11, pages 9056-9127. Pelvis: 1. The patient is status post hysterectomy. The urinary bladder is grossly unremarkable. There is no evidence of pelvic mass, fluid collection, or pelvic lymphadenopathy. 2.Mild scoliotic and hypertrophic changes are present in the spine. There are no suspicious bony abnormalities. SUMMARY: Mild progression of metastatic peritoneal disease. 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 Please perform with PO IV and rectal contrast. TECHNIQUE: Multiple axial images of the chest, abdomen, and pelvis were obtained following intravenous administration of iodinated contrast. Oral and rectal contrast were also administered as requested. Sagittal and coronal computerized reformatted images were obtained. CT imaging was performed with iterative reconstruction techniques and/or automated exposure control to reduce radiation dose. COMPARISON: Previous studies, the most recent dated 01/09/2018 IMPRESSION: Chest: 1. The heart size is normal. Coronary artery atherosclerotic changes are present particularly in the LAD and circumflex. There is no pericardial effusion. The thoracic aorta is minimally atherosclerotic without evidence of aneurysm. 2. There is no evidence of mediastinal or hilar mass or adenopathy. 3. There are no focal consolidations, suspicious pulmonary nodules, or pleural effusions. Minimal triangular pleural-based nodule is noted along the left major fissure. Abdomen: 1. There is scalloping of the liver surface and to a lesser extent along the portal vein. A 1.1 cm hypervascular focus is present in segment 5 and is most consistent with a benign process, FNH. 2. There is minimal scalloping along the spleen surface. The gallbladder is contracted. There are no renal or adrenal masses. The pancreas is unremarkable. 3. The abdominal aorta is atherosclerotic without evidence of aneurysm. There is no evidence of retroperitoneal mass or adenopathy. 4. There are postoperative changes related to right hemicolectomy. A colostomy is present in the left mid abdomen. An ileostomy is noted in the right mid abdomen. There is minimal serosal soft tissue thickening along the distal sigmoid colon. 5. There is peritoneal carcinomatosis. A small amount of abdominal ascites is present. 6. Simplified Preoperative Assessment for Appendix Tumor (SPAAT) Presence of liver, spleen, pancreas, or portal vein scalloping: Liver:Yes. 1 point Spleen:Yes. 1 point Pancreas:No. Zero points Portal vein:Yes. 1 point Mesenteric foreshortening:No. Zero points Total points: 3 Reference: Annals of Surgical Oncology July 2015, Volume 22, Issue 11, pages 2901-7635. Pelvis: 1. The patient is status post hysterectomy. The urinary bladder is grossly unremarkable. There is no evidence of pelvic mass, fluid collection, or pelvic lymphadenopathy. 2. Mild scoliotic and hypertrophic changes are present in the spine. There are no suspicious bony abnormalities. SUMMARY: Mild progression of metastatic peritoneal disease. [facility]-[id number] Performing Organization Address City/State/Zipcode Phone Number [facility] [address] [place] [address] * Cancer antigen 125 (02/02/2018 12:00 AM CDT) CA 125 45 (H) <35 U/mL LANCE Comment: [employer] This test was performed using II the [place] Chemiluminescent method. Values obtained from different assay methods cannot be used interchangeably. CA 125 levels, regardless of value, should not be interpreted as absolute evidence of the presence or absence of disease. Specimen Blood Resulting Agency Comment Performing Organization Information: Site ID: [id number] [facility] Address: [address] [place] [address] Director: Dr. Enrique Nice Performing Organization Address City/State/Zipcode Phone Number LANCE [employer] [address] [place] [address] II after 01/13/2018 Insurance Payer Benefit Subscriber ID Type Phone Address Plan / Group [employer] TEX[employer] xxxxxxxxx HMO MCR MEDICAID MEDICAID xxxxxxxxx Medicaid Advance Directives Patient has advance care planning documents, and code status on file. For more i nformation, please contact: Edgardo New [address] [place] [address] Date Inactivated Comments Code Status Date Activated 11/16/2017 10:39 PM Full Code 11/09/2017 4:42 PM Code Status decision reached by: Patient 04/14/2017 5:07 PM Full Code 04/10/2017 5:18 PM Code Status decision reached by: Patient
--- OUTSIDE RECORDS SUMMARY | 2019-01-14 13:18 | XMS REPORT | Summary of Care ---
Author Author [facility] Organization [facility] Address Unknown Phone Unavailable Encounter JULIANN Mclain(NAVEEN) [id number] Date(s): 03/02/16 - 03/02/16 [facility] [address] [place] [address]- Discharge Diagnosis: Essential (primary) hypertension Discharge Diagnosis: Pain in left leg Discharge Disposition: Home Attending Physician: Shiela Alvarado MD Vital Signs Most recent to 1 2 oldest [Reference Range]: Temperature Oral 98.0 DegF 98.2 DegF [96.4-99.1 DegF] (03/02/16 5:53 PM) (03/02/16 1:17 PM) Blood Pressure 172/96 mmHg 163/91 mmHg [90-140/60-90 mmHg] *HI* *HI* (03/02/16 5:53 PM) (03/02/16 1:17 PM) Respiratory Rate 18 BRMIN 16 BRMIN [14-20 BRMIN] (03/02/16 5:53 PM) (03/02/16 1:17 PM) Peripheral Pulse 79 bpm 85 bpm Rate [60-100 bpm] (03/02/16 5:53 PM) (03/02/16 1:17 PM) Weight 95.455 kg (03/02/16 1:17 PM) Problem List Condition Effective Dates Status Health Status Informant Hypertension(Confirm Resolved ed) Hypertension(Confirm Active ed) Allergies, Adverse Reactions, Alerts Substance Reaction Severity Status NKDA Active Medications lisinopril 5 mg oral tablet 5 mg=1 tab, PO, Daily, # 30 tab, 0 Refill(s) Start Date: 03/02/16 Status: Ordered tramadol 50 mg, 1 tab, Route: PO, Drug form: TAB, ONCE, Dosing Weight 95.455, kg, > 50 kg, Priority: STAT, Start date: 03/02/16 16:07:00 CDT, Stop date: 03/02/16 1 6:07:00 CDT Notes: Not to exceed 400mg/day. (Same As: Ultram) Start Date: 03/02/16 Stop Date: 03/02/16 Status: Completed tramadol 50 mg oral tablet 50 mg=1 tab, PO, Q6H, PRN Pain, X 10 day, # 40 tab, 0 Refill(s) Start Date: 03/02/16 Stop Date: 03/12/16 Status: Ordered Results ELECTROLYTES Most recent to 1 oldest [Reference Range]: Sodium Lvl [135-145 143 mEq/L mEq/L] (03/02/16 2:07 PM) Potassium Lvl 3.6 mEq/L [3.5-5.1 mEq/L] (03/02/16 2:07 PM) Chloride Lvl [95-109 109 mEq/L mEq/L] (03/02/16 2:07 PM) CO2 [24-32 mEq/L] 27 mEq/L (03/02/16 2:07 PM) AGAP [10.0-20.0 10.6 mEq/L mEq/L] (03/02/16 2:07 PM) CHEM PANEL Most recent to 1 oldest [Reference Range]: Creatinine Lvl 0.80 mg/dL [0.50-1.40 mg/dL] (03/02/16 2:07 PM) eGFR 89 mL/min/1.73m2 1 *NA* (03/02/16 2:07 PM) BUN [7-22 mg/dL] 14 mg/dL (03/02/16 2:07 PM) B/C Ratio [6-25] 18 (03/02/16 2:07 PM) Glucose Lvl [70-99 90 mg/dL mg/dL] (03/02/16 2:07 PM) Total Protein 8.6 g/dL [6.4-8.4 g/dL] *HI* (03/02/16 2:07 PM) Albumin Lvl [3.5-5.0 3.8 g/dL g/dL] (03/02/16 2:07 PM) Globulin [2.0-4.0 4.8 g/dL g/dL] *HI* (03/02/16 2:07 PM) A/G Ratio [0.7-1.6] 0.8 (03/02/16 2:07 PM) Calcium Lvl 9.1 mg/dL [8.5-10.5 mg/dL] (03/02/16 2:07 PM) ALT [0-65 unit/L] 34 unit/L (03/02/16 2:07 PM) AST [0-37 unit/L] 23 unit/L (03/02/16 2:07 PM) Alk Phos [39-136 112 unit/L unit/L] (03/02/16 2:07 PM) Bili Total [0.2-1.3 0.5 mg/dL mg/dL] (03/02/16 2:07 PM) 1Result Comment: The eGFR is calculated using [...] be mul tiplied by the estimated BMI. HEMATOLOGY Most recent to 1 oldest [Reference Range]: WBC [3.7-10.4 K/CMM] 5.2 K/CMM (03/02/16 2:07 PM) RBC [4.20-5.40 4.93 M/CMM M/CMM] (03/02/16 2:07 PM) Hgb [12.0-16.0 g/dL] 13.3 g/dL (03/02/16 2:07 PM) Hct [36.0-48.0 %] 41.7 % (03/02/16 2:07 PM) MCV [80.0-98.0 fL] 84.5 fL (03/02/16 2:07 PM) MCH [27.0-31.0 pg] 26.9 pg *LOW* (03/02/16 2:07 PM) MCHC [32.0-36.0 31.9 g/dL g/dL] *LOW* (03/02/16 2:07 PM) RDW [11.5-14.5 %] 14.8 % *HI* (03/02/16 2:07 PM) Platelet [133-450 278 K/CMM K/CMM] (03/02/16 2:07 PM) MPV [7.4-10.4 fL] 7.6 fL (03/02/16 2:07 PM) Segs [45.0-75.0 %] 52.9 % (03/02/16 2:07 PM) Lymphocytes 39.7 % [20.0-40.0 %] (03/02/16 2:07 PM) Monocytes [2.0-12.0 4.9 % %] (03/02/16 2:07 PM) Eosinophils [0.0-4.0 1.5 % %] (03/02/16 2:07 PM) Basophils [0.0-1.0 1.0 % %] (03/02/16 2:07 PM) Segs-Bands # 2.7 K/CMM [1.5-8.1 K/CMM] (03/02/16 2:07 PM) Lymphocytes # 2.1 K/CMM [1.0-5.5 K/CMM] (03/02/16 2:07 PM) Monocytes # [0.0-0.8 0.3 K/CMM K/CMM] (03/02/16 2:07 PM) Eosinophils # 0.1 K/CMM [0.0-0.5 K/CMM] (03/02/16 2:07 PM) Basophils # [0.0-0.2 0.1 K/CMM K/CMM] (03/02/16 2:07 PM) PT [12.0-14.7 12.5 seconds seconds] (03/02/16 2:07 PM) INR [0.85-1.17] 0.90 (03/02/16 2:07 PM) PTT [22.9-35.8 25.9 seconds seconds] (03/02/16 2:07 PM) Immunizations No data available for this section Procedures No data available for this section Social History Social History Type Response Alcohol Never, Type Beer, Wine, Liquor. Smoking Status Never smoker; Type: Cigarettes; Exposure to Tobacco Smoke None; Cigarette Smoking Last 365 Days No; Reg Smoking Cessation Counseling No Assessment and Plan No data available for this section
--- OUTSIDE RECORDS SUMMARY | 2019-01-14 13:18 | XMS REPORT ---
Author Author [facility] Organization [facility] Address Unknown Phone Unavailable Care Team Providers Care Waste Reclaimer Name Role Phone Unavailable Unavailable Payers Payer Name Policy Type Policy Number Effective Date Expiration Date Problems This patient has no known problems. Allergies, Adverse Reactions, Alerts Allergy Name Allergy Type Status Severity Reaction(s) Onset Date Inactive Date Treating Clinician Comments No Known Allergies DA Active U 2018-06-07 00:00:00 Medications This patient has no known medications.
[2019-01-14] MEDS ORDERED: SODIUM CHLORIDE 0.9% 1000ML 1,000 ML IV STA (14:57)
[2019-01-14] MEDS ORDERED: FENTANYL CITRATE/PF 100MCG/2 ML INJ IV ONE (15:00)
[2019-01-14] MEDS ORDERED: ONDANSETRON HCL INJ 2MG/ML 2ML 2 MG/ML VIAL IV ONE (15:15)
[2019-01-14 16:27] LABS: BILIRUBIN,URINE 2+ (NEGATIVE); CLARITY,URINE SL CLOUDY (CLEAR); COLOR,URINE YELLOW (YELLOW); KETONES,URINE 1+ (NEGATIVE); LEUKOCYTE ESTERASE ,URINE 1+ (NEGATIVE); NITRITE,URINE NEGATIVE (NEGATIVE); PROTEIN,URINE DIPSTICK 2+ (NEGATIVE); URINE UROBILINOGEN 0.2 mg/dL (0.2 - 1)
[2019-01-14 16:36] LABS: BACTERIA,URINE MANY /HPF; WBC,URINE (MAN) >50 /HPF (0-5)
[2019-01-14 16:52] LABS: BASOPHILS % 0.5 % (0.0-1.0); EOSINOPHILS % 0.3 % (0.0-6.0); HEMATOCRIT 31.4 % (34.2-44.1); HEMOGLOBIN 9.2 g/dL (12.0-16.0); LYMPHOCYTES # (AUTO) 1.5 (1.0-3.2); LYMPHOCYTES % 24.8 % (18.0-39.1); MEAN CORPUSCULAR HEMOGLOBIN 22.4 pg (28-32); MEAN CORPUSCULAR HGB CONC 29.3 g/dL (31-35); MEAN CORPUSCULAR VOLUME 76.6 fL (81-99); MONOCYTES # (AUTO) 0.4 (0.2-0.8); MONOCYTES % 6.6 % (4.4-11.3); NEUTROPHILS # (AUTO) 4.1 (2.1-6.9); NEUTROPHILS % 67.6 % (38.7-80.0); PLATELET COUNT 529 x10e3/uL (140-360); RED CELL DISTRIBUTION WIDTH 18.4 % (11.7-14.4)
[2019-01-14 16:59] LABS: PROTHROMBIN TIME 13.7 seconds (11.9-14.5)
[2019-01-14 17:00] LABS: PARTIAL THROMBOPLASTIN TIME 30.7 seconds (23.8-35.5)
[2019-01-14 17:09] LABS: ALBUMIN 2.7 g/dL (3.5-5.0); ALBUMIN/GLOBULIN RATIO 0.4 (0.8-2.0); ALKALINE PHOSPHATASE 125 IU/L (40-150); AMYLASE 61 U/L (25-125); ANION GAP 15.1 mmol/L (8-16); BLOOD UREA NITROGEN 9 mg/dL (7-26); BUN/CREATININE RATIO 12 (6-25); CALCIUM 10.4 mg/dL (8.4-10.2); CARBON DIOXIDE 27 mmol/L (22-29); CHLORIDE 97 mmol/L (98-107); CREATININE, SERUM 0.76 mg/dL (0.57-1.11); EST GLOMERULAR FILTRATION RATE > 60 ML/MIN (60-); GLUCOSE 94 mg/dL (74-118); LIPASE 36 U/L (8-78); POTASSIUM 3.1 mmol/L (3.5-5.1); SODIUM 136 mmol/L (136-145)
[2019-01-14 17:13] LABS: ALANINE AMINOTRANSFERASE < 6 IU/L (0-55)
[2019-01-14] MEDS ORDERED: POTASSIUM CHLORIDE 20MEQ/100ML 200 ML IV ONE (17:45)
--- NOTE | 2019-01-14 18:40 | Diagnostic Imaging Report ---
EXAMINATION: CT of the abdomen and pelvis with contrast. TECHNIQUE: Spiral CT images of the abdomen and pelvis were performed from the lung bases to the lesser trochanters after the intravenous administration of 100 cc of Isovue 370 and the oral administration of water. Coronal and sagittal reformatted images were obtained. COMPARISON: None. CLINICAL HISTORY:Upper abdominal and chest pain, history of stage IV appendiceal/colon cancer DISCUSSION: ABDOMEN/PELVIS: LOWER THORAX:Small left pleural effusion with associated left lower lobe atelectasis. Markedly patulous esophagus. HEPATOBILIARY: Shrunken liver with marked scalloping of the hepatic surface. No focal hepatic lesions. No intra or extrahepatic biliary ductal dilation. GALLBLADDER: No radio-opaque stones or sludge. No wall thickening. SPLEEN: No splenomegaly. PANCREAS: No focal masses or ductal dilatation. ADRENALS: No adrenal nodules. KIDNEYS/URETERS: No hydronephrosis, stones, or solid mass lesions. PELVIC ORGANS/BLADDER: Bladder is decompressed. 6.5 x 3.5 x 6.6 cm well-circumscribed structure posterior to the bladder and anterior to the rectum with central heterogeneous hypodensity (series 2, image 78 and sagittal image 61). PERITONEUM/RETROPERITONEUM: Severe distention of the peritoneal cavity with low density material, which measures higher than simple fluid. Nodularity of the omentum (4 example series 2, image 41). LYMPH NODES: No intra-abdominal, retroperitoneal, pelvic or inguinal lymphadenopathy. VESSELS: The celiac trunk,superior and inferior mesenteric and bilateral renal arteries are patent The portal, superior mesenteric and splenic veins are patent. IVC filter in place. GI TRACT: Visualized bowel shows no dilation or definite obstruction. BONES AND SOFT TISSUE: No aggressive lytic lesions. Multilevel degenerative disc changes in the lower thoracic and lumbosacral spine. Left-sided ostomy site with parastomal herniation measuring 9.0 x 4.6 cm, which is filled with same component at the abdominal cavity (series 2, image 49). A second ostomy site is noted in the right lateral abdomen (series 2, image 51), with a parastomal herniation measuring 8.3 x 3.3 cm, and filled with same component as the abdominal cavity. IMPRESSION: 1. Severe distention of the peritoneal cavity with low density material which measures higher than simple fluid and extensive scalloping of the hepatic surface. 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 This material is likely not drainable by simple paracentesis. 2. Nodularity of the omentum consistent with metastatic disease. 3. 6.6 cm well-circumscribed structure posterior to the bladder and anterior to the rectum may represent a rectal stump, which is also filled with pseudomyxoma material. Less likely this is a peritoneal implant. The patient has given history of hysterectomy. 4. Small left pleural effusion with associated left lower lung atelectasis. Markedly patulous esophagus. Signed by: Dr. Seng Matthews M.D. on 01/14/2019 6:36 PM
[2019-01-14] MEDS ORDERED: ZOFRAN4 MG PO (21:16)
[2019-01-14] MEDS ORDERED: PANTOPRAZOLE SO40 MG PO (21:16)
[2019-01-14] MEDS ORDERED: IOPAMIDOL 370 MG/ML 200 ML INFUS..BTL INJ ONE (21:19)
[2019-01-14] MEDS ORDERED: SODIUM CHLORIDE 0.9% 50ML 50 ML ONE (21:19)
[2019-01-14] MEDS ORDERED: PROMETHAZINE 12.5MG/ NACL 0.9% 12.5 MG/50 ML BAG IV PRN (21:30)
[2019-01-14] MEDS ORDERED: ONDANSETRON HCL INJ 2MG/ML 2ML 2 MG/ML VIAL IV PRN (21:30)
--- OUTSIDE RECORDS SUMMARY | 2019-01-14 22:37 | XMS REPORT | Clinical Summary ---
Author Author Reynoso [facility] Organization [facility] Address Unknown Phone Unavailable Care Team Providers Care Lap Polisher Name Role Phone Alexis Pinon MD PCP [...] 08/30/2018 Hospital Neurology - Encounter 09/03/2018 Mary Dejesus RN 08/29/2018 Documentation Oncology Abel Hdez LMSW 08/13/2018 Social Work Oncology Harish Villagomez MD 08/10/2018 Telephone Oncology Abel Hdez, [facility] [place] 08/10/2018 Social Work Oncology Abel Hdez, [facility] [place] 08/09/2018 Social Work Oncology Abel Hdez, [facility] [place] 08/06/2018 Social Work Oncology Abel Hdez, [facility] [place] 08/02/2018 Social Work Oncology Harish Villagomez MD 07/31/2018 Telephone Oncology Abel Hdez, [facility] [place] 07/31/2018 Social Work Oncology Harish Villagomez MD [...] Harish Villagomez MD 07/16/2018 Telephone Oncology Maureen cMclelland MA 07/05/2018 Telephone Internal Medicine Harish Villagomez [...] unspecified vein; 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 [facility] Obstetrics and Gynecology - Encounter 06/21/2018 Pola [...] Taken Vital Sign Reading 09/03/2018 12:37 PM [facility] Blood Pressure 136/84 09/03/2018 12:37 PM [facility] Pulse 95 09/03/2018 12:27 PM [facility] Temperature 36.8 C (98.3 F) 09/03/2018 12:27 PM [facility] Respiratory Rate 16 09/03/2018 12:27 PM [facility] Oxygen Saturation 98% - Inhaled Oxygen - Concentration 07/30/2018 1:21 PM CDT Weight 84.4 kg (186 lb 1.6 oz) 08/30/2018 10:00 AM [facility] Height 165.1 cm (5' 5") 07/30/2018 1:21 [...] / Lot Implanted Type Area Manufactur er [id number] / / 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 [employer] [place] Navalign Vascular N/A: N/A [employer] Uniset Vena Cava Filter - Filter PERIPHERAL [id number] INTERVENTI Implanted: 06/18/2018 (Quantity not ON on file) Procedures Comments Procedure Name Priority Date/Time Associated Diagnosis ESTIMATED GFR Routine 09/01/2018 5:08 AM [facility] BASIC METABOLIC PANEL Routine 09/01/2018 5:08 AM [facility] HC COMPLETE BLD COUNT Routine 09/01/2018 W/AUTO DIFF 5:08 AM [facility] US ABDOMINAL PARACENTESIS Routine 08/31/2018 IMAGING 2:00 PM [facility] PROTHROMBIN TIME WITH INR Routine 08/31/2018 4:53 AM [facility] HC COMPLETE BLD COUNT Routine 08/31/2018 W/AUTO DIFF 4:53 AM [facility] CARCINOEMBRYONIC ANTIGEN Routine 08/31/2018 (CEA) 4:00 AM [facility] ESTIMATED GFR Routine 08/31/2018 4:00 AM [facility] BASIC METABOLIC PANEL Routine 08/31/2018 4:00 AM [facility] URINALYSIS SCREEN AND Routine 08/30/2018 MICROSCOPY, WITH REFLEX 4:57 PM [facility] TO CULTURE CT ABDOMEN PELVIS W STAT 08/30/2018 CONTRAST 1:21 PM [facility] ESTIMATED GFR STAT 08/30/2018 10:50 AM [facility] URINALYSIS SCREEN AND STAT 08/30/2018 MICROSCOPY, WITH REFLEX 10:50 AM [facility] TO CULTURE LIPASE LEVEL STAT 08/30/2018 10:50 AM [facility] COMPREHENSIVE METABOLIC STAT 08/30/2018 PANEL 10:50 AM [facility] HC COMPLETE BLD COUNT STAT 08/30/2018 W/AUTO DIFF 10:50 AM [facility] GRAM STAIN STAT 08/30/2018 10:50 AM [facility] URINE CULTURE STAT 08/30/2018 10:50 AM [facility] ECG 12-LEAD STAT 08/30/2018 10:13 AM [facility] XR CHEST 2 VW Routine 07/30/2018 Cancer [...] Results * Estimated GFR (09/01/2018 5:08 AM [facility]) Only the most recent of 4 results within the time period is included. Estimated GFR >=90 mL/min/1.73 m2 [facility] DEPARTMENT OF Comment: PATHOLOGY AND CatergoryUnitsInte GENOMIC MEDICINE rpretation G1 >=90 Normal or high G2 60-89Mildly decreased [id number] Mildly to moderately decreased L4n62-92 Moderately to severely decreased G4 15-29Severely decreased G5 <15Kidney failure The eGFR was calculated using the Chronic Kidney Disease Epidemiology Collaboration (CKD-EPI) equation. Interpretation is based on recommendations of the National Kidney Foundation-Kidney Disease Outcomes Quality Initiative (NKF-KDOQI) published in 2014. Specimen Plasma specimen Performing Organization Address City/State/Zipcode Phone Number [facility] DEPARTMENT OF [address] [place] [address] PATHOLOGY AND GENOMIC MEDICINE * CBC with platelet and differential (09/01/2018 5:08 AM [facility]) Only the most recent of 14 results within the time period is included. WBC 4.70 4.50 - 11.00 k/uL [facility] DEPARTMENT OF PATHOLOGY AND GENOMIC MEDICINE RBC 3.49 (L) 4.20 - 5.50 m/uL [facility] DEPARTMENT OF PATHOLOGY AND GENOMIC MEDICINE HGB 8.1 (L) 12.0 - 16.0 g/dL [facility] DEPARTMENT OF PATHOLOGY AND GENOMIC MEDICINE HCT 27.0 (L) 37.0 - 47.0 % [facility] DEPARTMENT OF PATHOLOGY AND GENOMIC MEDICINE MCV 77.4 (L) 82.0 - 100.0 fL [facility] DEPARTMENT OF PATHOLOGY AND GENOMIC MEDICINE MCH 23.2 (L) 27.0 - 34.0 pg [facility] DEPARTMENT OF PATHOLOGY AND GENOMIC MEDICINE MCHC 30.0 (L) 31.0 - 37.0 g/dL [facility] DEPARTMENT OF PATHOLOGY AND GENOMIC MEDICINE RDW - SD 47.2 37.0 - 55.0 fL [facility] DEPARTMENT OF PATHOLOGY AND GENOMIC MEDICINE MPV 9.1 8.8 - 13.2 fL [facility] DEPARTMENT OF PATHOLOGY AND GENOMIC MEDICINE Platelet count 401 (H) 150 - 400 k/uL [facility] DEPARTMENT OF PATHOLOGY AND GENOMIC MEDICINE Nucleated RBC 0.00 /100 WBC [facility] DEPARTMENT OF PATHOLOGY AND GENOMIC MEDICINE Neutrophils 58.1 39.0 - 69.0 % [facility] DEPARTMENT OF PATHOLOGY AND GENOMIC MEDICINE Lymphocytes 30.4 25.0 - 45.0 % [facility] DEPARTMENT OF PATHOLOGY AND GENOMIC MEDICINE Monocytes 8.7 0.0 - 10.0 % [facility] DEPARTMENT OF PATHOLOGY AND GENOMIC MEDICINE Eosinophils 1.5 0.0 - 5.0 % [facility] DEPARTMENT OF PATHOLOGY AND GENOMIC MEDICINE Basophils 1.1 (H) 0.0 - 1.0 % [facility] DEPARTMENT OF PATHOLOGY AND GENOMIC MEDICINE Immature granulocytes 0.2Comment: "Immature 0.0 - 1.0 % [facility] DEPARTMENT OF granulocytes" (promyelocytes, PATHOLOGY AND myelocytes, metamyelocytes) [facility] Specimen Blood Performing Organization Address City/State/Zipcode Phone Number [facility] DEPARTMENT OF [address] [place] [address] PATHOLOGY AND GENOMIC MEDICINE * Basic metabolic panel (09/01/2018 5:08 AM [facility]) Only the most recent of 7 results within the time period is included. Sodium 139 135 - 148 mEq/L [facility] DEPARTMENT OF PATHOLOGY AND GENOMIC MEDICINE Potassium 3.6 3.5 - 5.0 mEq/L [facility] DEPARTMENT OF PATHOLOGY AND GENOMIC MEDICINE Chloride 103 98 - 112 mEq/L [facility] DEPARTMENT OF PATHOLOGY AND GENOMIC MEDICINE CO2 22 (L) 24 - 31 mEq/L [facility] DEPARTMENT OF PATHOLOGY AND GENOMIC MEDICINE Anion gap 14@ANIO 7 - 15 mEq/L [facility] DEPARTMENT OF PATHOLOGY AND GENOMIC MEDICINE BUN 5 (L) 8 - 23 mg/dL [facility] DEPARTMENT OF PATHOLOGY AND GENOMIC MEDICINE Creatinine 0.70 0.50 - 0.90 mg/dL [facility] DEPARTMENT OF PATHOLOGY AND GENOMIC MEDICINE Glucose 94 65 - 99 mg/dL [facility] DEPARTMENT OF PATHOLOGY AND GENOMIC MEDICINE Calcium 9.2 8.8 - 10.2 mg/dL [facility] DEPARTMENT OF PATHOLOGY AND GENOMIC MEDICINE Specimen Plasma specimen Performing Organization Address City/State/Zipcode Phone Number [facility] OF [address] [place] [address] PATHOLOGY AND GENOMIC MEDICINE * US Abdominal Paracentesis Imaging (08/31/2018 2:00 PM [facility]) Narrative Performed At EXAMINATION:US ABDOMINAL PARACENTESIS IMAGING [...] 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 [facility]-[id number] Performing Organization Address [facility] [address] * Prothrombin time with INR (08/31/2018 4:53 AM [facility]) Only the most recent of 6 results within the time period is included. Prothrombin time 14.6 (H) 11.5 - 14.5 sec [facility] DEPARTMENT OF PATHOLOGY AND [employer] [facility] INR 1.2 [facility] DEPARTMENT OF Comment: PATHOLOGY AND The International Normalized GENOMIC MEDICINE Ratio (INR) is a therapeutic monitoring tool for patients who are stable on oral anticoagulant therapy. An INR of 2.0-3.0 is suggested for deep vein thrombosis/pulmonary embolism. Specimen Blood Performing Organization Address [facility] [place] [address] PATHOLOGY AND [employer] [facility]ICINE * Carcinoembryonic antigen (CEA) (08/31/2018 4:00 AM [facility]) Only the most recent of 5 results within the time period is included. CEA 6,426.0 (H) 0.0 - 3.8 ng/mL [facility] DEPARTMENT OF Comment: PATHOLOGY AND Reference range for heavy [facility] smokers:0.0 - 5.5 ng/mL The NAKIA Doris 8000 CEA immunoassay was used. Results obtained with different assay methods or kits should not be used interchangeably and may be different. Specimen Serum Performing Organization Address [facility] [place] [address] PATHOLOGY AND [employer] MEDICINE * Urinalysis screen and microscopy, with reflex to culture (08/30/2018 4:57 PM [facility]) Only the most recent of 2 results within the time period is included. Specimen site Clean catch [facility] Specimen Urine Performing Organization Address City/State/Zipcode Phone Number [facility] DEPARTMENT OF [address] [place] [address] PATHOLOGY AND GENOMIC MEDICINE [facility] [address] [place] [address] HOSPITAL * CT Abdomen Pelvis W Contrast (08/30/2018 1:21 PM [facility]) Only the most recent of 2 results [...] products. Consider direct visualization for further evaluation. [id number] Procedure Note Hm Interface, Radiology Results Incoming - 08/30/2018 1:40 PM [facility] EXAMINATION: CT ABDOMEN PELVIS W CONTRAST CLINICAL [...] products. Consider direct visualization for further evaluation. [id number] Performing Organization Address City/[facility]/Zipcode Phone Number [facility] [address] [place] [address] * Gram stain (08/30/2018 10:50 AM [facility]) Gram stain result No WBC's or organisms seen. [facility] DEPARTMENT OF Comment: PATHOLOGY AND Specimen Information GENOMIC MEDICINE Specimen Source: Urine Specimen Site: Clean catch Specimen Urine Performing Organization Address [facility] Phone Number [address] [address] PATHOLOGY AND GENOMIC MEDICINE * Urine culture (08/30/2018 10:50 AM [facility]) Urine culture isolate [facility] DEPARTMENT OF ~Mixed PATHOLOGY AND nav <=10-3 GENOMIC MEDICINE col/cc Mixed nav <=10-3 col/cc (A) Comment: Specimen Information Specimen Source: Urine Specimen Site: Clean catch Urine culture isolate Streptococcus group B [facility] DEPARTMENT OF 10-4 cfu/ml PATHOLOGY AND (A) GENOMIC MEDICINE Specimen Urine Performing Organization Address City/[facility] [place] [address] PATHOLOGY AND GENOMIC MEDICINE * Lipase level (08/30/2018 10:50 AM [facility]) Lipase 25 13 - 60 U/L [facility] DEPARTMENT OF PATHOLOGY AND GENOMIC MEDICINE Specimen Plasma specimen Performing Organization Address [facility] [place] [address] PATHOLOGY AND GENOMIC MEDICINE * Comprehensive metabolic panel (08/30/2018 10:50 AM [facility]) Only the most recent of 7 results within the time period is included. Sodium 141 135 - 148 mEq/L [facility] DEPARTMENT OF PATHOLOGY AND GENOMIC MEDICINE Potassium 3.9 3.5 - 5.0 mEq/L [facility] DEPARTMENT OF PATHOLOGY AND GENOMIC MEDICINE Chloride 101 98 - 112 mEq/L [facility] DEPARTMENT OF PATHOLOGY AND GENOMIC MEDICINE CO2 26 24 - 31 mEq/L [facility] DEPARTMENT OF PATHOLOGY AND GENOMIC MEDICINE Anion gap 14@ANIO 7 - 15 mEq/L [facility] DEPARTMENT OF PATHOLOGY AND GENOMIC MEDICINE BUN 10 8 - 23 mg/dL [facility] DEPARTMENT OF PATHOLOGY AND GENOMIC MEDICINE Creatinine 0.81 0.50 - 0.90 mg/dL [facility] DEPARTMENT OF PATHOLOGY AND GENOMIC MEDICINE Glucose 94 65 - 99 mg/dL [facility] DEPARTMENT OF PATHOLOGY AND GENOMIC MEDICINE Calcium 9.8 8.8 - 10.2 mg/dL [facility] DEPARTMENT OF PATHOLOGY AND GENOMIC MEDICINE Protein 8.6 (H) 6.3 - 8.3 g/dL [facility] DEPARTMENT OF Comment: PATHOLOGY AND [place] GENOMIC MEDICINE 4.6-7.0 g/dL 1 week 4.4-7.6 g/dL 7 months-1year 5.1-7.3 g/dL 1-2 years5.6-7 .5 g/dL >3 years6.0-8 .0 g/dL 18-150 6.3-8.3 g/dL Albumin 2.8 (L) 3.5 - 5.0 g/dL [facility] DEPARTMENT OF PATHOLOGY AND GENOMIC MEDICINE A/G ratio 0.5 (L) 0.7 - 3.8 [facility] DEPARTMENT OF PATHOLOGY AND GENOMIC MEDICINE Alkaline phosphatase 158 (H) 35 - 104 U/L [facility] DEPARTMENT OF PATHOLOGY AND GENOMIC MEDICINE AST 25 10 - 35 U/L [facility] DEPARTMENT OF PATHOLOGY AND GENOMIC MEDICINE ALT 25 5 - 50 U/L [facility] DEPARTMENT OF PATHOLOGY AND GENOMIC MEDICINE Total bilirubin 0.6 0.0 - 1.2 mg/dL [facility] DEPARTMENT OF PATHOLOGY AND GENOMIC MEDICINE Specimen Plasma specimen Performing Organization Address [facility] Phone Number [facility] DEPARTMENT OF [address] [place] [address] PATHOLOGY AND GENOMIC MEDICINE * ECG 12 lead (08/30/2018 10:13 AM [facility]) Only the most recent of 3 results within the time period is included. Ventricular rate 104 [facility] MUSE Atrial rate 104 [facility] MUSE NV interval 150 [facility] MUSE QRSD interval 100 HM MUSE QT interval 344 [facility] MUSE QTC interval 452 [facility] MUSE P axis 1 44 [facility] MUSE QRS axis 1 -36 [facility] MUSE T wave axis 48 [facility] MUSE EKG impression Sinus tachycardia-Left axis [facility] MUSE deviation-Minimal voltage criteria for LVH, may be normal variant-Abnormal ECG-In automated comparison with ECG of 20-JUN-2018 14:51,-premature ventricular complexes are no longer present- Performing Organization Address [facility] Phone Number [facility] MUSE [address] [place] [address] * XR Chest 2 Vw (07/30/2018 4:00 PM CDT) Narrative Performed At EXAMINATION:XR CHEST 2 VW [facility] 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 The pulmonary vasculature is normal. There are no acute infiltrates or effusions. Mild interstitial scarring is noted. Degenerative changes of the osseous structures. 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 The pulmonary vasculature is normal. There are no acute infiltrates or effusions. Mild interstitial scarring is noted. Degenerative changes of the osseous structures. [facility]-[id number] Performing Organization Address [facility]/Zipcode Phone Number [facility] [address] [place] [address] * XR Foot 3+ Vw Left (07/30/2018 3:59 PM CDT) Narrative Performed At EXAMINATION:XR FOOT 3VW LEFT [facility] CLINICAL HISTORY:M79.672 Pain in left foot, foot pain COMPARISON:None. IMPRESSION: There is no evidence of acute left foot fracture or dislocation. Joint spaces are preserved. Bone mineralization is normal. There is calcaneal enthesophyte at the insertion of the Achilles tendon. No radiopaque foreign body noted. [facility]-[id number] Procedure Note Hm Interface, Radiology Results Incoming [...] Achilles tendon. No radiopaque foreign body noted. [facility]-[id number] Performing Organization Address [facility] Phone Number [facility] [address] [place] [address] * Cancer antigen 19-9 (07/03/2018 2:55 PM CDT) Only the most recent of 3 results within the time period is included. CA 19-9 <1 0 - 35 U/mL [facility] DEPARTMENT OF Comment: PATHOLOGY AND The Nakia Doris 8000 CA19-9 GENOMIC MEDICINE immunoassay was used. Results obtained with different assay methods or kits should not be used interchangeably and may be different. Specimen Plasma specimen Performing Organization Address City/[facility]/Zipcode Phone Number [facility] DEPARTMENT OF [address] [place] [address] PATHOLOGY AND GENOMIC MEDICINE * Magnesium level (07/03/2018 2:55 PM CDT) Magnesium 2.0 1.6 - 2.4 mg/dL [facility] DEPARTMENT OF PATHOLOGY AND GENOMIC MEDICINE Specimen Plasma specimen Performing Organization Address City/[facility] [place] [address] PATHOLOGY AND GENOMIC MEDICINE * Ferritin level (07/03/2018 2:55 PM CDT) Only the most recent of 2 results within the time period is included. Ferritin level 445 (H) 13 - 150 ng/mL [facility] DEPARTMENT OF PATHOLOGY AND GENOMIC MEDICINE Specimen Plasma specimen Performing Organization Address City/[facility] [place] [address] PATHOLOGY AND GENOMIC MEDICINE * Estimated GFR (06/21/2018 12:02 AM CDT) Only the most recent of 8 results within the time period is included. GFR Non Af Amer 83 mL/min/1.73 m2 [facility] DEPARTMENT OF PATHOLOGY AND GENOMIC MEDICINE GFR Af Amer >90 mL/min/1.73 m2 [facility] DEPARTMENT OF Comment: PATHOLOGY AND Chronic kidney [...] Americans. Specimen Plasma specimen Performing Organization Address [facility] [place] [address] PATHOLOGY AND GENOMIC MEDICINE * Transfuse RBC (06/20/2018 6:45 PM CDT) * Surgical pathology request (06/20/2018 5:02 PM CDT) [facility] DEPARTMENT OF PATHOLOGY AND GENOMIC MEDICINE Surgical pathology report See link below for PDF Lab [facility] DEPARTMENT OF Report PATHOLOGY AND GENOMIC MEDICINE Result status This is Final Report for [facility] DEPARTMENT OF [id number] PATHOLOGY AND GENOMIC MEDICINE Performing Organization Address City/[facility] [place] [address] PATHOLOGY AND GENOMIC MEDICINE * Prepare RBC, 1 Units (06/20/2018 11:35 AM CDT) Product name Red Blood Cells -1, Leukored [facility] DEPARTMENT OF PATHOLOGY AND GENOMIC MEDICINE Unit number [id number] [facility] DEPARTMENT OF PATHOLOGY AND GENOMIC MEDICINE Product code [id number] [facility] DEPARTMENT OF PATHOLOGY AND GENOMIC MEDICINE Dispense status Transfused [facility] DEPARTMENT OF PATHOLOGY AND GENOMIC MEDICINE Blood expiration date [id number] [facility] DEPARTMENT OF PATHOLOGY AND GENOMIC MEDICINE Blood type code 8400 [facility] DEPARTMENT OF PATHOLOGY AND GENOMIC MEDICINE Blood type AB POSITIVE [facility] DEPARTMENT OF PATHOLOGY AND GENOMIC MEDICINE Performing Organization Address [facility] [place] [address] PATHOLOGY AND GENOMIC MEDICINE * Type and screen (06/20/2018 11:35 AM CDT) Only the most recent of 2 results within the time period is included. ABO grouping AB [facility] DEPARTMENT OF PATHOLOGY AND GENOMIC MEDICINE Rh type POS [facility] DEPARTMENT OF PATHOLOGY AND GENOMIC MEDICINE Antibody screen (gel) NEG [facility] DEPARTMENT OF PATHOLOGY AND GENOMIC MEDICINE Specimen Blood Performing Organization Address [facility] Phone Number [facility] [place] [place] [address] PATHOLOGY AND [employer] [facility] * D-dimer (06/19/2018 4:45 AM CDT) D-dimer 11.78 (H) 0.00 - 0.40 ug/mL FEU [facility] DEPARTMENT OF Comment: PATHOLOGY AND Units are [...] and malignancies. Specimen Blood Performing Organization Address City/[facility] [place] [address] PATHOLOGY AND [employer] [facility]INE * IR IVC Filter Placement (06/18/2018 1:57 PM CDT) Narrative Performed At Performing Radiologist PARISA Seals MD Assistants None Anesthesia Type Lidocaine 1% was used for local anesthetic. Moderate sedation was administered by the procedure nurse and monitored by the procedure physician for total ldqk-rh-cnak sedation time of 34 minutes. Pre Procedure [...] The micropuncture sheath was removed and a 5-Malay pigtail catheter was then placed over the [...] to be completely deployed with no complications. [facility]-[id number] Procedure Note [facility], Radiology Results Incoming - 06/18/2018 4:33 PM CDT Performing Radiologist Shmuel Seals MD Assistants None Anesthesia Type Lidocaine 1% was used for local anesthetic. Moderate sedation was administered by the procedure nurse and monitored by the procedure physician for total [id number]-mb-[id number] sedation time of 34 minutes. Pre Procedure [...] The micropuncture sheath was removed and a 5-Malay pigtail catheter was then placed over the [...] to be completely deployed with no complications. [facility]-[id number] Performing Organization Address City/State/Zipcode Phone Number [facility] [address] [place] [address] * Partial thromboplastin time, activated (06/18/2018 10:55 AM CDT) Only the most recent of 5 results within the time period is included. PTT 25.2 23.0 - 36.0 sec [facility] DEPARTMENT OF Comment: PATHOLOGY AND PTT therapeutic range for [employer] unfractionated heparin is 61.0-112.0 seconds which corresponds to Anti-Xa 0.3-0.7 U/ml. Specimen Blood Performing Organization Address [facility] Phone Number [facility] OF [address] [place] [address] PATHOLOGY AND GENOMIC MEDICINE * CT Abdomen WWO Contrast, Pelvis W Contrast (06/16/2018 12:35 PM CDT) Narrative Performed At EXAMINATION:CT ABDOMEN WWO CONTRAST PELVIS W CONTRAST [facility] CLINICAL HISTORY:re-evaluate appendicial cancer TECHNIQUE: Noncontrast images [...] July 2015, Volume 22, Issue 11, pages 4127-9166. Pelvis: 1.There is low attenuation material in [...] The possibility of infection cannot be excluded. [facility]-[id number] Procedure Note [facility], Radiology Results - 06/16/2018 1:32 PM CDT [...] July 2015, Volume 22, Issue 11, pages 0144-6556. Pelvis: 1. There is low attenuation material [...] The possibility of infection cannot be excluded. [facility]-[id number] Performing Organization Address [facility] Phone Number [facility] [address] [place] [address] * Iron level (06/16/2018 3:19 AM CDT) Only the most recent of 2 results within the time period is included. Iron level 46 37 - 145 ug/dL [facility] DEPARTMENT OF PATHOLOGY AND GENOMIC MEDICINE Specimen Plasma specimen Performing Organization Address [facility] Phone Number [address] [address] PATHOLOGY AND GENOMIC MEDICINE * Haptoglobin (06/16/2018 3:19 AM CDT) Only the most recent of 2 results within the time period is included. Haptoglobin 282 (H) 30 - 200 mg/dL [facility] DEPARTMENT OF PATHOLOGY AND GENOMIC MEDICINE Specimen Plasma specimen Performing Organization Address [facility]/Zipcode Phone Number [facility] DEPARTMENT OF [address] [place] [address] PATHOLOGY AND GENOMIC MEDICINE * CT Angiogram [...] abdomen, scalloping of liver contour and ascites. [facility]-[id number] Procedure Note Interface, Radiology Results Incoming - [...] abdomen, scalloping of liver contour and ascites. [facility]-[id number] Performing Organization Address [facility] Phone Number [address] [address] * Troponin (06/15/2018 6:23 PM CDT) Troponin <0.30 0.00 - 0.30 ng/mL [facility] DEPARTMENT OF Comment: PATHOLOGY AND 0.30 - 1.49 GENOMIC MEDICINE ng/mlMay indicate increased risk of acute coronary syndrome. >=1.5 ng/ml Consistent with acute myocardial infarction. The diagnostic value of a single normal or non-diagnostic result is questionable.Serial samples at 2-6 hour intervals are required to rule out acute myocardial injury. Specimen Plasma specimen Performing Organization Address City/[facility]/Zipcode Phone Number [address] [address] PATHOLOGY AND GENOMIC MEDICINE * Total iron binding capacity (06/15/2018 6:20 PM CDT) Iron level 54 37 - 145 ug/dL [facility] DEPARTMENT OF PATHOLOGY AND GENOMIC MEDICINE Iron binding capacity 355 200 - 400 ug/dL [facility] DEPARTMENT OF PATHOLOGY AND GENOMIC MEDICINE % Saturation 15.2 15.0 - 38.0 % [facility] DEPARTMENT OF PATHOLOGY AND GENOMIC MEDICINE Specimen Plasma specimen Performing Organization Address [facility] Phone Number [facility] [place] [place] [address] PATHOLOGY AND GENOMIC MEDICINE * Hemoglobin & hematocrit (06/15/2018 6:20 PM CDT) HGB 9.2 (L) 12.0 - 16.0 g/dL [facility] DEPARTMENT OF PATHOLOGY AND GENOMIC MEDICINE HCT 31.0 (L) 37.0 - 47.0 % [facility] DEPARTMENT OF PATHOLOGY AND GENOMIC MEDICINE Specimen Blood Performing Organization Address [facility] Phone Number [facility] [place] [address] PATHOLOGY AND GENOMIC MEDICINE * LDH (06/15/2018 6:20 PM CDT) LDH 355 (H) 87 - 225 U/L [facility] DEPARTMENT OF PATHOLOGY AND GENOMIC MEDICINE Specimen Plasma specimen Performing Organization Address [facility] Phone Number [facility] [place] [place] [address] PATHOLOGY AND GENOMIC MEDICINE * Folate level (06/15/2018 6:20 PM CDT) Folate >20.0 4.8 - 24.2 ng/mL [facility] DEPARTMENT OF PATHOLOGY AND GENOMIC MEDICINE Specimen Serum Performing Organization Address [facility] Phone Number [facility] [place] [place] [address] PATHOLOGY AND GENOMIC MEDICINE * Vitamin B12 level (06/15/2018 6:20 PM CDT) Vitamin B12 >1600 (H) 211 - 946 pg/mL [facility] DEPARTMENT OF Comment: PATHOLOGY AND Significant overlap exists GENOMIC MEDICINE between normal and deficiency states. However, most patients with deficiencies will have Serum B12 <200 pg/mL. Specimen Serum Performing Organization Address [facility] Phone Number [facility] [place] [place] [address] PATHOLOGY AND GENOMIC MEDICINE * Pv duplex venous lower extremity (06/15/2018 5:58 PM CDT) Narrative Performed At [facility] Vascular Ultrasound Laboratory Lower Extremity Venous Report [address] [place] [address] Pat.Name:JAMES REYNOSO.ID:[id number] St.Date: 06/15/2018 Refer.MD:HUSSEIN CAVANAUGH MD Exam Time: 5:29:00 PMStudy Type:LE Venous Height:66inDOBAge: [age]Y Sex: FEMALESonogrphr: Newton Vi, RVT Pat. Stat.:Inpatient Room:[address] TapeVol: PABLITO, [facility] - 4: [address] Echo Event ID:[id number] Order ID:[id number] Reason for Study:Bilateral leg swelling. History of [...] Ultrasound Laboratory Lower Extremity Venous Report [address] [address], [place] [address] Pat.Name: JAMES REYNOSO.ID: [id number] .Date: 06/15/2018 Refer.MD: HUSSEIN CAVANAUGH MD Exam Time: 5:29:00 PM Study Type:LE Venous Height: 66in Age: 7 1950,68Y Sex: FEMALE Sonogrphr: Aman Marcum RVT Pat. Stat.:Inpatient Room: [address] Tape Vol: , CPT - 4: 336[address] Echo Event ID:[id number] Order ID: [id number] Reason for Study:Bilateral leg swelling. History of [...] Organization Address City/State/Zipcode Phone Number [facility] [address] [place] [address] * CT Chest W Contrast Abdomen W Contrast Pelvis W Contrast (02/02/2018 4:09 PM CDT) Narrative Performed At EXAMINATION:CT CHEST W CONTRAST ABDOMEN W CONTRAST PELVIS W CONTRAST [facility] CLINICAL HISTORY: 67 years [id number] Malignant neoplasm of appendix, surveillance for history [...] July 2015, Volume 22, Issue 11, pages 8100-7306. Pelvis: 1. The patient is status post hysterectomy. The urinary bladder is grossly unremarkable. There is no evidence of pelvic mass, fluid collection, or pelvic lymphadenopathy. 2.Mild scoliotic and hypertrophic changes are present in the spine. There are no suspicious bony abnormalities. SUMMARY: Mild progression of metastatic peritoneal disease. [facility]-[id number] Procedure Note [facility], Radiology Results - 02/02/2018 4:46 PM CDT [...] July 2015, Volume 22, Issue 11, pages 5696-1080. Pelvis: 1. The patient is status post hysterectomy. The urinary bladder is grossly unremarkable. There is no evidence of pelvic mass, fluid collection, or pelvic lymphadenopathy. 2. Mild scoliotic and hypertrophic changes are present in the spine. There are no suspicious bony abnormalities. SUMMARY: Mild progression of metastatic peritoneal disease. [facility]-[id number] Performing Organization Address City/State/Zipcode Phone Number [facility] [address] [place] [address] * Cancer antigen 125 (02/02/2018 12:00 AM CDT) CA 125 45 (H) <35 U/mL [facility] Comment: [employer] This test was performed using II the [place] Chemiluminescent method. Values obtained from different assay methods cannot be used interchangeably. CA 125 levels, regardless of value, should not be interpreted as absolute evidence of the presence or absence of disease. Specimen Blood Resulting Agency Comment Performing Organization Information: Site ID: [email or web address] Name: [email or web address] Address: [address] [place] [address] Director: Dr. Enrique Nice Performing Organization Address City/State/Zipcode Phone Number [facility] [address] [place] [address] II after 01/13/2018 Insurance Payer Benefit Subscriber ID Type Phone Address Plan / Group [employer]US TEX[employer]US xxxxxxxxx HMO MCR MEDICAID MEDICAID xxxxxxxxx Medicaid Advance Directives Patient has advance care planning documents, and code status on file. For more i nformation, please contact: Edgardo New [address] [place] [address] Date Inactivated Comments Code Status Date Activated 11/16/2017 10:39 PM Full Code 11/09/2017 4:42 PM Code Status decision reached by: Patient 04/14/2017 5:07 PM Full Code 04/10/2017 5:18 PM Code Status decision reached by: Patient
[2019-01-14] MEDS ORDERED: PIPER-TAZ 3.375 GM 50 ML ONE (22:44)
[2019-01-14] MEDS: SODIUM CHLORIDE 0.9% 1000ML 1,000 ML IV SCH (22:55)
[2019-01-14] MEDS: PIPER-TAZ 3.375 GM 50 ML IV SCH (23:16)
[2019-01-15] MEDS ORDERED: FENTANYL CITRATE/PF 100MCG/2 ML INJ ONE (05:29)
[2019-01-15] MEDS ORDERED: FENTANYL CITRATE/PF 100MCG/2 ML INJ IV ONE (05:45)
[2019-01-15] MEDS: SODIUM CHLORIDE 0.9% 1000ML 1,000 ML IV SCH (06:26)
[2019-01-15] MEDS: PIPER-TAZ 3.375 GM 50 ML IV SCH (07:02)
[2019-01-15] MEDS ORDERED: FENTANYL 50 MCG/HR PATCH TOP SCH (07:30)
[2019-01-15 10:02] VITALS: BP 157/98
--- NOTE | 2019-01-15 10:10 | NUR ---
RADIOLOGY CALLED REGARDING CONSENTS FOR PARACENTESIS; NURSE WENT TO OBTAIN CONSENT FROM PT AND PT STATES SHE KNEW NOTHING ABOUT IT AND THAT DR SORIA IS D/C HER; PT ORDERS CONFIRMED AND PT D/C
--- NOTE | 2019-01-16 01:05 | History and Physical ---
PRIMARY CARE PHYSICIAN: Dr. Alexis Pinon. CHIEF COMPLAINT: Abdominal pain. HISTORY OF PRESENT ILLNESS: The patient is a 49-tqqk-upg-female, who has colon cancer, advanced and metastasis, stage 4 with abdominal wound, colostomy, and fistula. The patient is on hospice care at home. The patient was having pain, uncontrolled. Therefore, the patient came to the hospital. The patient was placed on Duragesic patch 25 mcg daily and the patient seem to be doing okay. The patient is otherwise will need to continue for hospice care at home. She is not a candidate and there is no abdominal fluid, just significant metastasis . PAST MEDICAL HISTORY: Advanced colon cancer with metastasis, end-stage, on hospice care, pain control, palliative care at home. History of appendectomy, hysterectomy, colon resection with colostomy bag, IVC filter, hypertension, dyslipidemia, DVT, pulmonary embolism, recurrent urinary tract infection, end-stage colon cancer with metastasis to multiple site, on hospice care. SOCIAL HISTORY: The patient is on hospice care. PHYSICAL EXAMINATION: VITAL SIGNS: Temperature is 98, blood pressure is 118/62, pulse rate is 100, respirations 18. GENERAL: The patient seems comfortable with pain medication control. HEENT: Normocephalic. Anicteric. NECK: Supple grossly. PULMONARY: Diminished breath sounds. CARDIOVASCULAR: Tachycardia. ABDOMEN: Distention, abdominal mass, colostomy and fistula. LABORATORY DATA: Sodium is 136, potassium 3.1, chloride 97, bicarb 27, BUN 9, creatinine 0.7, and glucose 94. WBC 6.0, hemoglobin 9.2, hematocrit 31, and platelets are 529. IMPRESSION: Advanced end-stage colon cancer with metastasis associated with abdominal distention, solid mass, metastasis with pain. PLAN: The patient will continue with Duragesic patch, pain control, palliative care. Discharge the patient home with hospice care. Discussed with the patient at length. She already know that she is in a stage where she needs palliative care and pain control. Discussed with Dr. Alexis Pinon, her PCP and discussed on patient care and hospice care as well. The patient agreeable for discharge home. MD JOHN Tate/ROMEO /[id number]
--- NOTE | 2019-01-16 03:37 | Discharge Summary ---
PRIMARY CARE PHYSICIAN: Dr. Darryl Koch. The patient discharged from the emergency room. Please review my history and physical. The patient is with end-stage colon cancer with extensive metastasis to the abdomen with solid mass. No drainable fluid. The patient required pain control. . The patient was discharged home. Resume hospice care at home. MD JOHN Tate/ROMEO /[id number]
== END 2019-01-15 10:11 | disposition home or self-care (01) ==
LOC: ER 13:14 → ERHOLD 22:33
PROVIDERS: ADMIT Internal Medicine; ATTEND Internal Medicine
DX: G89.3 Neoplasm related pain (acute) (chronic) (principal); C18.9 Malignant neoplasm of colon, unspecified; Z90.49 Acquired absence of other specified parts of digestive tract; Z93.3 Colostomy status; Z51.5 Encounter for palliative care; C80.0 Disseminated malignant neoplasm, unspecified
CPT/HCPCS: 36415; 74177; 80053; 81001; 82150; 83690; 85025; 85610; 85730; 99284; G0378 ×2; J2405; J2543 ×2; J3480; J7030; Q9967